=== PATIENT | female | born 1965 | race African-American/Black ===

== ENCOUNTER 2025-03-02 09:46 | Day surgery (SDC) | payer OTHER ==
[2025-03-01 11:28] LABS: Hematocrit 38.5 % (36.0-46.0); Hemoglobin 12.9 g/dL (12.2-16.2); Mean Corpuscular Hemoglobin 27.5 pg (28.0-32.0); Mean Corpuscular Volume 82.2 fL (80.0-100.0); Nucleated Red Blood Cells % 0.0 %
[2025-03-01 11:30] LABS: Urine Protein, UAD Negative (Negative)
[2025-03-01 11:42] LABS: INR 1.01 (0.9-1.15); Partial Thromboplastin Time 30.5 SEC (24.5-34.5); Prothrombin Time 10.7 sec (9.3-11.8)
[2025-03-01 12:06] LABS: Alanine Aminotransferase 13 U/L (7-40); Albumin 4.6 g/dL (3.2-4.8); Alkaline Phosphatase 102 U/L (46-116); Anion Gap 9 (5-15); BUN/Creatinine Ratio 11.9 (10.0-20.0); Blood Urea Nitrogen 10 mg/dL (9-23); Calcium 9.3 mg/dL (8.7-10.4); Carbon Dioxide 29 mmol/L (20-31); Chloride 106 mmol/L (98-107); Glucose 91 mg/dL (74-106); Potassium 3.9 mmol/L (3.5-5.1); Sodium 144 mmol/L (136-145); Total Protein 7.5 g/dL (5.7-8.2)
[2025-03-01 12:07] LABS: Bilirubin, Total 0.4 mg/dL (0.2-1.0)
[~2025-03-02] VITALS: Ht 154.9 cm; Wt 70.3 kg
[~2025-03-02 09:46] MED LIST: ASCO500T11 PO; MENT1CRE EX; ZINC100T5 PO
[2025-03-02] MEDS ORDERED: ceFAZolin 2 GM/D5W50ml 50 ML IV ONE (09:54)
[2025-03-02] MEDS ORDERED: LIDOCAINE W/ EPINEPHRINE 1% 20ML VIAL ONE (10:29)
[2025-03-02] MEDS ORDERED: KETOROLAC TROMETH 30 MG/ML 1ML VIAL IV ONE (10:45)
[2025-03-02] MEDS ORDERED: HYDROmorphone HCL 2 MG/ML VL/or syr IV PRN ×2 (10:45)
[2025-03-02] MEDS ORDERED: MORPHINE SULFATE INJ 2 MG/ml SYRG IV PRN (10:45)
[2025-03-02] MEDS ORDERED: MORPHINE SULFATE 4 MG/ML SYR/VIAL IV PRN (10:45)
[2025-03-02] MEDS ORDERED: METOCLOPRAMIDE HCL 5MG/ml INJ 2ml VIAL IV PRN (10:45)
[2025-03-02] MEDS ORDERED: fentaNYL CITRATE 100 MCG/2 ML VL ONE (10:53)
[2025-03-02] MEDS ORDERED: MIDAZOLAM HCL 2MG/2ML 2ml VIAL (1mg/ml) ONE (10:53)
[2025-03-02] MEDS ORDERED: PROPOFOL 10 MG/ML 20 ML IV ONE (10:53)
[2025-03-02] MEDS ORDERED: ONDANSETRON HCL 4 MG/2 ML VIAL ONE (10:53)
[2025-03-02] MEDS ORDERED: KETAMINE 50mg/ML 1ml syringe ONE (10:53)
[2025-03-02] MEDS ORDERED: MEPERIDINE HCL (25 MG/ML) 1ML VIAL ONE (10:53)
[2025-03-02] MEDS: LIDOCAINE 1% INJ PF 5ML AMP ONE (11:39)
[2025-03-02] MEDS: BUPIVACAINE 0.5% P/F INJ 10 ML VIAL ONE (11:39)
[2025-03-02 11:48] VITALS: PULSE 95; RESP 16; TEMP 97.8; O2SAT 96
[2025-03-02] MEDS ORDERED: ACE3T PO (11:48)
--- NOTE | 2025-03-02 12:14 | DVHOP ---
DATE OF SURGERY: 03/02/2025 PREOPERATIVE DIAGNOSIS: Right axillary mass (history of right breast cancer). POSTOPERATIVE DIAGNOSIS: Right axillary mass (history of right breast cancer). SURGEON: Ivan Armstrong MD, SOCK LINING STITCHER: Jonny Zamora NP. ANESTHESIA: General endotracheal. ANESTHESIOLOGIST: Dr. Farooq. PROCEDURE: Right axilla mass excision. DESCRIPTION OF PROCEDURE: Under adequate anesthesia with the patient's skin prepped and draped, an incision was made over the palpable mass within the dome of the right axilla. Dissection carried through adipose tissue and scar tissue for previous mastectomy and reconstruction of the right breast. The mass measured approximately 3 x 2 cm in size and was grasped with an Allis clamp and excised. It disintegrated partially at the time of dissection; however, most of the mass, if not all of it, was removed and submitted for histopathologic examination. The wound was then irrigated with warm water, which was aspirated. Hemostasis was assured. Due to the depth of the dissection, a 7 mm [place] drain was inserted and exteriorized separately. The wound was then approximated using Monocryl sutures, Dermabond glue, and Steri-Strips. The drain was secured with a 2-0 nylon suture. The patient remained stable throughout the procedure, left the operating room following accurate needle and sponge counts. Her , Bubba, was thoroughly informed in the waiting room. MD AMADEO Ramirez/BEBO TID: [id number] RECEIPT: [id number]
[2025-03-02 12:33] VITALS: BP 140/86; PULSE 87; RESP 16; O2SAT 96
== END 2025-03-02 12:50 | disposition home or self-care (01) ==
LOC: SUR 09:46
PROVIDERS: ATTEND Surgery
DX: R22.9 Localized swelling, mass and lump, unspecified (principal); C76.1 Malignant neoplasm of thorax; N63.10 Unspecified lump in the right breast, unspecified quadrant; I10 Essential (primary) hypertension; E03.9 Hypothyroidism, unspecified; M19.90 Unspecified osteoarthritis, unspecified site; E66.9 Obesity, unspecified; Z17.1 Estrogen receptor negative status [ER-]; Z17.22 Progesterone receptor negative status; Z17.32 Human epidermal growth factor receptor 2 negative status; Z68.30 Body mass index [BMI] 30.0-30.9, adult; Z79.899 Other long term (current) drug therapy; Z86.2 Personal history of diseases of the blood and blood-forming organs and certain disorders involving the immune mechanism; Z98.82 Breast implant status; Z98.890 Other specified postprocedural states; Z88.0 Allergy status to penicillin; Z88.8 Allergy status to other drugs, medicaments and biological substances
CPT/HCPCS: 11603; 36415; 80053; 81001; 85025; 85610; 85730; 88305; 88342; J0690; J2175; J2250; J2405; J2704; J3010; J3490

== ENCOUNTER 2025-03-05 13:25 | Inpatient (IN) | payer OTHER ==
[~2025-03-05] VITALS: Ht 156.2 cm; Wt 76.8 kg
[~2025-03-05 13:25] MED LIST changes: +ACE3T PO
[2025-03-05 15:12] LABS: Hematocrit 38.1 % (36.0-46.0); Hemoglobin 12.4 g/dL (12.2-16.2); Mean Corpuscular Hemoglobin 27.0 pg (28.0-32.0); Mean Corpuscular Volume 83.0 fL (80.0-100.0); Nucleated Red Blood Cells % 0.1 %
[2025-03-05 15:16] LABS: Chloride 106 mmol/L (98-107); Potassium 3.7 mmol/L (3.5-5.1); Sodium 145 mmol/L (136-145)
[2025-03-05 15:17] LABS: Anion Gap 13 (5-15); Carbon Dioxide 26 mmol/L (20-31)
[2025-03-05 15:18] LABS: Calcium 9.2 mg/dL (8.7-10.4)
--- NOTE | 2025-03-05 15:19 | DVH ---
CHEST RADIOGRAPH INDICATION: sob TECHNIQUE: Single frontal view of the chest was obtained COMPARISON: None FINDINGS: Lines and Tubes: None Lungs: Opacification 3/4 of the left chest. Mildly prominent bronchovascular markings in the right chest Pleura: Possible large left pleural effusion No pneumothorax. Cardiomediastinal contours: Unremarkable Bones: No acute osseous abnormality. IMPRESSION: 1. Moderate large left pleural effusion and infiltrate 2. Mildly prominent bronchovascular markings right. 3. Tubing in the soft tissues of the right lateral chest etiology uncertain. Not appear to extend into the chest.
[2025-03-05 15:23] LABS: BUN/Creatinine Ratio 16.0 (10.0-20.0); Blood Urea Nitrogen 13 mg/dL (9-23); Glucose 87 mg/dL (74-106)
--- NOTE | 2025-03-05 15:40 | ED.PDOC ---
SOB-HPI HPI Comments This is a 59 year old female presenting to the ED with chief complaint of SOB. Patient reports that she has been experiencing SOB with associated fever and chills since after her right breast cyst removal surgery performed last Friday by Dr. Armstrong. Patient relays that her symptoms have worsened over time, prompting her to come to the ED for further evaluation. Patient denies any chest pain, dizziness, cough, congestion, or hemoptysis. Chief Complaint: Shortness of Breath Time Seen by MD: 15:39 Reviewed notes: Nurses Notes, Medications, Allergies Information Source: Patient Mode of Arrival: Ambulatory Severity: Moderate Timing: Days Duration: Since onset Context: At Rest PE Risk Factors: None History of: None Prehospital treatment: None Modifying Factors: Nothing Associated Signs and Symptoms: Fever Past Medical History PAST MEDICAL HISTORY: Denies Surgical History (Other): Right breast cyst removal PROCUREMENT REPRESENTATIVE History: No Pertinent PROCUREMENT REPRESENTATIVE History Family History Family History: Reviewed,noncontributory to illness Social History Smoker: Non-Smoker Alcohol: Denies ETOH Use Drugs: Denies Drug Use Lives In: Home Constitutional: reports: chills, fever; denies: diaphoresis, fatigue, malaise, sweats, weakness, others EENTM: denies: blurred vision, double vision, ear bleeding, ear discharge, ear drainage, ear pain, ear ringing, eye pain, eye redness, hearing loss, mouth pain, mouth swelling, nasal discharge, nose bleeding, nose congestion, nose pain, photophobia, tearing, throat pain, throat swelling, voice changes, others Respiratory: reports: shortness of breath; denies: cough, hemoptysis, orthopnea, SOB at rest, SOB with excertion, stridor, wheezing, others Cardiovascular: denies: chest pain, dizzy spells, diaphoresis, Dyspnea on exertion, edema, irregular heart beat, left arm pain, lightheadedness, palpitations, PND, syncope, others Gastrointestinal: denies: abdomen distended, abdominal pain, blood streaked bowels, constipated, diarrhea, dysphagia, difficulty swallowing, hematemesis, melena, nausea, poor appetite, poor fluid intake, rectal bleeding, rectal pain, vomiting, others Genitourinary: denies: abnormal vagina bleeding, burning, dyspareunia, dysuria, flank pain, frequency, hematuria, incontinence, pain, , vagina discharge, urgency, others Neurological: denies: dizziness, fainting, headache, left sided numbness, left sided weakness, numbness, paresthesia, pre-existing deficit, right sided numbness, right sided weakness, seizure, speech problems, tingling, tremors, weakness, others Musculoskeletal: denies: back pain, gout, joint pain, joint swelling, muscle pain, muscle stiffness, neck pain, others Integumetry: denies: bruises, change in color, change in hair/nails, dryness, laceration, lesions, lumps, rash, wounds, others Allergic/Immunocompromised: denies: Difficulty Healing, Frequent Infections, Hives, Itching, others Hematologic/Lymphatic: denies: anemia, blood clots, easy bleeding, easy bruising, swollen glands, others Endocrine: denies: excessive hunger, excessive sweating, excessive thirst, excessive urination, flushing, intolerance to cold, intolerance to heat, unexplained weight gain, unexplained weight loss, others Psychiatric: denies: anxiety, bipolar disorder, depression, hopeless, panic disorder, schizophrenia, sleepless, suicidal, others All Other Systems: Reviewed and Negative Physical Exam General Appearance: No Apparent Distress, Normal HEENT: Normal ENT Inspection, Pharynx Normal, TMs Normal Neck: Full Range of Motion, Non-Tender, Normal, Normal Inspection Respiratory: Chest Non-Tender, Lungs Clear, No Accessory Muscle Use, No Respiratory Distress, Other (Tachypneic) Cardiovascular: No Edema, No JVD, No Murmur, No Gallop, Normal Peripheral Pulses, Regular Rate/Rhythm Breast Exam: Deferred Gastrointestinal: No Organomegaly, Non Tender, No Pulsatile Mass, Normal Bowel Sounds, Soft Genitalia: Deferred Pelvic: Deferred Rectal: Deferred Extremities: No calf tenderness, Normal capillary refill, Normal inspection, Normal range of motion, Non-tender, No pedal edema Musculoskeletal : Apperance: Normal Neurologic: Alert, exhibitor sales II-XII nml as Tested, No Motor Deficits, Normal Affect, Normal Mood, No Sensory Deficits Cerebellar Function: Normal Reflexes: Normal Skin: Dry, Normal Color, Warm Lymphatic: No Adenopathy Was a procedure done? Was a procedure done?: No Differential Dx Differential Diagnosis: Panic Attack, Pneumonia, Pneumothorax, Pulmonary Embolism, Respiratory Distress X-Ray, Labs, Meds, VS Vital Signs Date Time Temp Pulse Resp B/P (MAP) Pulse Ox O2 Delivery O2 Flow Rate FiO2 03/05/25 15:35 98.6 108 20 145/86 (105) 95 98.6 03/05/25 13:35 113 03/05/25 13:27 98.3 75 16 148/88 95 98.3 Lab Test 03/05/25 15:00 Range/Units White Blood Count 6.5 # 4.4-10.8 10^3/uL Red Blood Count 4.59 4.0-5.20 10^6/uL Hemoglobin 12.4 12.2-16.2 g/dL Hematocrit 38.1 36.0-46.0 % Mean Corpuscular Volume 83.0 80.0-100.0 fL Mean Corpuscular Hemoglobin 27.0 L 28.0-32.0 pg Mean Corpuscular Hemoglobin Concent 32.5 32.0-36.0 g/dL Red Cell Distribution Width 14.5 H 11.8-14.3 % Platelet Count 285 140-450 10^3/uL Mean Platelet Volume 7.1 6.9-10.8 fL Neutrophils (%) (Auto) 54.3 37.0-80.0 % Lymphocytes (%) (Auto) 34.7 10.0-50.0 % Monocytes (%) (Auto) 8.5 0.0-12.0 % Eosinophils (%) (Auto) 1.5 0.0-7.0 % Basophils (%) (Auto) 1.0 0.0-2.0 % Neutrophils # (Auto) 3.5 1.6-8.6 10 ^3/uL Lymphocytes # (Auto) 2.2 0.4-5.4 10 ^3/uL Monocytes # (Auto) 0.5 0-1.3 10 ^3/uL Eosinophils # (Auto) 0.1 0-0.8 10 ^3/uL Basophils # (Auto) 0.1 0-0.2 10 ^3/uL Nucleated Red Blood Cells 0.1 % Sodium Level 145 136-145 mmol/L Potassium Level 3.7 3.5-5.1 mmol/L Chloride Level 106 98-107 mmol/L Carbon Dioxide Level 26 20-31 mmol/L Anion Gap 13 5-15 Blood Urea Nitrogen 13 9-23 mg/dL Creatinine 0.81 0.550-1.02 mg/dL Glomerular Filtration Rate Calc 83 >90 mL/min BUN/Creatinine Ratio 16.0 10.0-20.0 Serum Glucose 87 74-106 mg/dL Calcium Level 9.2 8.7-10.4 mg/dL Troponin I High Sensitivity 4 </=34 ng/L Time of 1ST Reevaluation: 16:38 Reevaluation 1ST: Unchanged Patient Education/Counseling: Diagnosis, Treatment Family Education/Counseling: No Family Present SEPSIS Sepsis Screen Date sepsis recognized/suspect: Mar 05, 2025 Time Sepsis recognized/suspect: 1326 Recent Procedure: No On Antibiotic Therapy: No Respiratory Rate >20: No Heart Rate >90: No Temp<36 C (96.8 F) or >38.3 C: No SBP <90 or MAP <65 mmHG: No New Acute Mental Status Change: No Is the patient on CPAP, BIPAP,: No Physician Orders Electrocardigram (03/05/25 13:32) Chest Portable (03/05/25 14:42) PTPTT (03/05/25 16:40) Urinalysis (03/05/25 16:40) Chest Portable (03/05/25 16:40) Accucheck (03/05/25 16:40) Lactated Ringer's (03/05/25 16:45) Blood Culture (03/05/25 16:40) Vancomycin Once Stat (03/05/25 16:45) Lactic Acid W/ Reflex Order (03/05/25 18:00) Lactic Acid W/ Reflex Order (03/05/25 20:00) Cefepime 2 Gm Once Stat (03/05/25 16:45) Notify Md If Map <65 Or Bp<90 (03/05/25 16:40) If Map<65 Start Vasopressor (03/05/25 16:40) Sepsis Reassesment After Fluid (03/05/25 17:40) Vital Signs Date Time Temp Pulse Resp B/P (MAP) Pulse Ox O2 Delivery O2 Flow Rate FiO2 03/05/25 15:35 98.6 108 20 145/86 (105) 95 98.6 03/05/25 13:35 113 03/05/25 13:27 98.3 75 16 148/88 95 98.3 Laboratory Tests Test 03/05/25 15:00 White Blood Count 6.5 10^3/uL (4.4-10.8) # Departure 1 Departure Time of Disposition: 16:41 (Patient likely with pneumonia large pleural effusion. We will empirically cover patient with antibiotics and fluids. We w ill admit patient for further workup and expert consultation) Impression: Primary Impression: Acute respiratory failure Additional Impressions: Pneumonia Shortness of breath Suspected sepsis Disposition: ADMITTED INPATIENT Admit to: Tele Condition: Guarded Critical Care Note Critical Care Time?: Yes Critical care comment: Acute shortness of breath Authorized and Performed by: Lucila Ellis MD Total critical care time: Approximately 41 minutes Due to a high probability of clinically significant, life threatening deterioration, the patient required my highest level of preparedness to intervene emergently and I personally spent this critical care time directly and personally managing the patient. This critical care time included obtaining a history; examining the patient; pulse oximetry; ordering and review of studies; arranging urgent treatment with development of a management plan; evaluation of patient's response to treatment; frequent reassessment; and, discussions with other providers. This critical care time was performed to assess and manage the high probability of imminent, life-threatening deterioration that could result in multi-organ failure. It was exclusive of separately billable procedures and treating other patients and teaching time. Please see my other sections and the rest of the note for further information on patient assessment and treatment. Stability Stability form required: No Heart Score Heart Score: Heart Score Response (Comments) Value History N/A 0 EKG N/A 0 Age N/A 0 Risk Factors N/A 0 Troponin N/A 0 Total 0 I personally scribed for LUCILA ELLIS MD ([email or web address]) on 03/05/25 at 15:40. Electronically submitted by Gilbert Coker ([email or web address]). I personally scribed for LUCILA ELLIS MD ([email or web address]) on 03/05/25 at 15:51. Electronically submitted by Gilbert Coker ([email or web address]). LUCILA ELLIS MD Mar 05, 2025 15:40
[2025-03-05] MEDS ORDERED: CEFEPIME 1GM/50ML 50 ML IV ONE (16:45)
[2025-03-05 17:41] LABS: INR 0.99 (0.9-1.15); Partial Thromboplastin Time 29.4 SEC (24.5-34.5); Prothrombin Time 10.5 sec (9.3-11.8)
[2025-03-05] MEDS: VANCOMYCIN 1GM/250ML KIT 250 ML IV ONE (18:02)
[2025-03-05] MEDS: levoFLOXacin 250 MG TAB PO ONE (18:57)
[2025-03-05] MEDS: LACTATED RINGER'S 1,450 ML IV ONE (20:47)
[2025-03-05 20:52] LABS: Urine Protein, UAD Negative (Negative)
[2025-03-05] MEDS ORDERED: ACETAMINOPHEN 500 MG TAB or CAP PO PRN (21:45)
[2025-03-05] MEDS ORDERED: KETOROLAC TROMETH 30 MG/ML 1ML VIAL IV PRN (21:45)
[2025-03-05] MEDS: DOXYCYCLINE 100MG/100ML 100 ML IV SCH (22:27)
[2025-03-05] MEDS: FUROSEMIDE 40 MG/4 ML VIAL IV SCH (22:29)
[2025-03-05 23:09] VITALS: BP 119/75; PULSE 92; RESP 18; O2SAT 100
[2025-03-06] VITALS (8 sets, daily range): BP systolic 119–133; BP diastolic 75–82; PULSE 74–115; RESP 16–18; TEMP 98.3–98.9; O2SAT 97–100
--- NOTE | 2025-03-06 00:25 | DVHHP2 ---
History of Present Illness History of Present Illness 59-year-old female with past medical history significant for breast cancer status post bilateral mastectomy and chemotherapy three years ago, who presented with acute shortness of breath. Patient recently underwent excision/biopsy of a right axillary mass (likely lymph node) on Friday by Dr. Marsh. Since the procedure, she developed progressive dyspnea, prompting presentation to the hospital. On arrival, she was noted to be tachycardic and hypertensive, though she has no known history of chronic hypertension. Initial laboratory workup including CBC and BMP was largely unremarkable. Chest X-ray demonstrated a large left-sided pleural effusion occupying approximately 80% of the hemithorax. Given symptomatic large effusion, patient was admitted for further management. PMHx: Breast cancer status post bilateral mastectomy and chemotherapy PSHx: Bilateral mastectomy, recent right axillary mass excision/biopsy Medications: Not provided Allergies: Not provided Social History: Not provided ROS: Positive for shortness of breath. Otherwise negative as per HPI. Review of Systems Allergies: Coded Allergies: Penicillins (Unverified Allergy, Mild, rash, 03/01/25) Medications Current Medications Medications Dose Ordered Sig/Lena Route Start Time Stop Time Status Last Admin Dose Admin Doxycycline Hyclate 100 ml @ 50 mls/hr Q12H IV 03/05/25 22:00 03/05/25 22:27 50 MLS/HR Ceftriaxone Sodium 50 ml @ 100 mls/hr DAILY@09 IV 03/06/25 09:00 Furosemide 40 mg DAILY IV 03/05/25 21:45 03/05/25 22:29 40 MG Acetaminophen 1,000 mg Q8HP PRN PO 03/05/25 21:45 Ketorolac Tromethamine 30 mg Q6HPRN PRN IV 03/05/25 21:45 03/10/25 21:44 Exam Vital Signs Vital Signs Date Time Temp Pulse Resp B/P (MAP) Pulse Ox O2 Delivery O2 Flow Rate FiO2 03/05/25 22:29 142/66 03/05/25 16:50 99.1 107 22 92 99.1 03/05/25 16:50 Room Air Exam General: Appears uncomfortable with mild respiratory distress Cardiovascular: Tachycardic, regular rhythm Respiratory: Decreased breath sounds over the left lung field Abdomen: Soft, non-tender, non-distended Extremities: No peripheral edema Neuro: Alert and oriented Labs/Xrays Labs Test 03/05/25 20:30 03/05/25 18:11 03/05/25 15:00 Range/Units Urine Color Colorless Yellow Urine Clarity Turbid H Clear Urine pH 7.0 5.0-9.0 Urine Specific [place] 1.005 1.001-1.035 Urine Protein Negative Negative Urine Ketones Negative Negative Urine Blood Negative Negative /uL Urine Nitrite Negative Negative Urine Bilirubin Negative Negative Urine Urobilinogen Normal Negative mg/dL Urine Leukocyte Esterase Trace Negative /uL Urine RBC 2 0 - 4 /hpf Urine Microscopic WBC 2 0-5 /HPF Urine Squamous Epithelial Cells Few <5 /hpf Urine Bacteria None seen None Seen /hpf Urine Glucose Normal Normal mg/dL Lactic Acid Level 1.2 0.4-2.0 mmol/L White Blood Count 6.5 # 4.4-10.8 10^3/uL Red Blood Count 4.59 4.0-5.20 10^6/uL Hemoglobin 12.4 12.2-16.2 g/dL Hematocrit 38.1 36.0-46.0 % Mean Corpuscular Volume 83.0 80.0-100.0 fL Mean Corpuscular Hemoglobin 27.0 L 28.0-32.0 pg Mean Corpuscular Hemoglobin Concent 32.5 32.0-36.0 g/dL Red Cell Distribution Width 14.5 H 11.8-14.3 % Platelet Count 285 140-450 10^3/uL Mean Platelet Volume 7.1 6.9-10.8 fL Neutrophils (%) (Auto) 54.3 37.0-80.0 % Lymphocytes (%) (Auto) 34.7 10.0-50.0 % Monocytes (%) (Auto) 8.5 0.0-12.0 % Eosinophils (%) (Auto) 1.5 0.0-7.0 % Basophils (%) (Auto) 1.0 0.0-2.0 % Neutrophils # (Auto) 3.5 1.6-8.6 10 ^3/uL Lymphocytes # (Auto) 2.2 0.4-5.4 10 ^3/uL Monocytes # (Auto) 0.5 0-1.3 10 ^3/uL Eosinophils # (Auto) 0.1 0-0.8 10 ^3/uL Basophils # (Auto) 0.1 0-0.2 10 ^3/uL Nucleated Red Blood Cells 0.1 % Prothrombin Time 10.5 9.3-11.8 sec Prothrombin Time INR 0.99 0.9-1.15 Activated Partial Thromboplast Time 29.4 24.5-34.5 SEC Sodium Level 145 136-145 mmol/L Potassium Level 3.7 3.5-5.1 mmol/L Chloride Level 106 98-107 mmol/L Carbon Dioxide Level 26 20-31 mmol/L Anion Gap 13 5-15 Blood Urea Nitrogen 13 9-23 mg/dL Creatinine 0.81 0.550-1.02 mg/dL Glomerular Filtration Rate Calc 83 >90 mL/min BUN/Creatinine Ratio 16.0 10.0-20.0 Serum Glucose 87 74-106 mg/dL Calcium Level 9.2 8.7-10.4 mg/dL Troponin I High Sensitivity 4 </=34 ng/L SEPSIS Sepsis Screen Date sepsis recognized/suspect: Mar 05, 2025 Time Sepsis recognized/suspect: 1326 Recent Procedure: No On Antibiotic Therapy: No Respiratory Rate >20: No Heart Rate >90: No Temp<36 C (96.8 F) or >38.3 C: No SBP <90 or MAP <65 mmHG: No New Acute Mental Status Change: No Is the patient on CPAP, BIPAP,: No Physician Orders Accucheck (03/05/25 16:40) Blood Culture (03/05/25 16:40) Notify Md If Map <65 Or Bp<90 (03/05/25 16:40) If Map<65 Start Vasopressor (03/05/25 16:40) Sepsis Reassesment After Fluid (03/05/25 17:40) Admit (03/05/25 21:21) Oxygen By Nasal Cannula (03/05/25 21:21) Stat Ekg For Chest Pain (03/05/25 21:21) Notify Md Of Changes From Base (03/05/25 21:21) Pharmacy Clinical Specialist For 24 Hours (03/05/25 21:21) Emergency Dysrhythmia Protocol (03/05/25 21:21) Rhythm Strips Once Every Shift (03/05/25 21:21) Cardiac Diet-2gna,Lofat,Lochol (03/06/25 Breakfast) Mrsa Screen (03/05/25 21:40) Doxycycline 100mg/100ml (Vibramycin) (03/05/25 22:00) Ceftriaxone 1gm/50ml (Rocephin) (03/06/25 09:00) Furosemide Injection (Lasix Injection) (03/05/25 21:45) Acetaminophen Tab Or Cap (Tylenol Tablet (03/05/25 21:45) Ketorolac Injection (Toradol Injection) (03/05/25 21:45) *Consult (03/06/25 00:20) Chest Xray 1 View (03/06/25 00:20) Cytology (03/06/25 00:21) Lactate Dehydrogenase (03/06/25 00:21) Lactate Dehydrogenase, Fluid (03/06/25:21) Protein, Body Fluid (03/06/25 00:21) Gram Stain (03/06/25 00:21) Routine Bacterial Culture (03/06/25 00:21) Body Fluids, Diff. Cell Count (03/06/25 00:21) Body Fluid Ph (03/06/25 00:21) Glucose Body Fluid (03/06/25 00:21) Vital Signs Date Time Temp Pulse Resp B/P (MAP) Pulse Ox O2 Delivery O2 Flow Rate FiO2 03/05/25 22:29 142/66 03/05/25 16:50 99.1 107 22 161/98 (119) 92 99.1 03/05/25 16:50 22 92 Room Air Laboratory Tests Test 03/05/25 15:00 03/05/25 18:11 White Blood Count 6.5 10^3/uL (4.4-10.8) # Lactic Acid Level 1.2 mmol/L (0.4-2.0) Medications Medications Dose Ordered Sig/Lena Route Start Time Stop Time Status Last Admin Dose Admin Doxycycline Hyclate 100 ml @ 50 mls/hr Q12H IV 03/05/25 22:00 03/05/25 22:27 50 MLS/HR Furosemide 40 mg DAILY IV 03/05/25 21:45 03/05/25 22:29 40 MG Lactated Ringer's 1,450 ml @ 1,450 mls/hr ONCE ONCE IV 03/05/25 16:45 03/05/25 17:44 DC 03/05/25 20:47 1,450 MLS/HR Levofloxacin 750 mg ONCE ONCE PO 03/05/25 17:15 03/05/25 17:16 DC 03/05/25 18:57 750 MG Vancomycin HCl 250 ml @ 250 mls/hr ONCE ONCE IV 03/05/25 16:45 03/05/25 17:44 DC 03/05/25 18:02 250 MLS/HR Assessment/Plan Assessment/Plan #Large left pleural effusion #S/P breast mass #Possible pneumonia gram+/gram- #breast cancer Admitted due to symptomatic large left pleural effusion with concern for malignant etiology given history of breast cancer. Pulmonology consulted. Thoracentesis performed by Dr. Ramsey with removal of 1.2 L serosanguinous fluid; procedure stopped early due to chest discomfort. Post-procedure chest X-ray without pneumothorax but with residual effusion. Pleural fluid studies pending including cytology. Continue ceftriaxone and doxycycline while infectious component is being ruled out. Monitor respiratory status closely. Pulmonology to follow for consideration of repeat drainage or further intervention depending on clinical course and fluid results. Case discussed with Dr Parada Full code Plan discussed with: Patient, Other (rn) My Orders Orders - MYNOR NAVA RESIDENT Procedure Category Date Status Time Admit ADMIT 03/05/25 Transmitted 21:21 Oxygen By Nasal RT 03/05/25 Transmitted Cannula 21:21 Stat Ekg For Chest [facility] 03/05/25 In Process Pain 21:21 Notify Of Changes [facility] 03/05/25 In Process From Base 21:21 Pharmacy Clinical Specialist For [facility] 03/05/25 In Process 24 Hours 21:21 Emergency Dysrhythmia [facility] 03/05/25 In Process Protocol 21:21 Rhythm Strips Once [facility] 03/05/25 In Process Every Shift 21:21 Cardiac DIET 03/06/25 Transmitted Diet-2gna,Lofat,Lochol Breakfast Mrsa Screen ORACIO 03/05/25 Logged 21:40 Doxycycline PHA 03/05/25 In Process 100mg/100ml 22:00 Ceftriaxone 1gm/50ml PHA 03/06/25 In Process (Rocephin) 09:00 Furosemide Injection PHA 03/05/25 In Process (Lasix Injection) 21:45 Acetaminophen Tab Or PHA 03/05/25 In Process Cap (Tylenol Tablet 21:45 Ketorolac Injection PHA 03/05/25 In Process (Toradol Injection) 21:45 *Consult CONS 03/06/25 Transmitted 00:20 Chest Xray 1 View XY 03/06/25 Logged 00:20 Cytology ORACIO 03/06/25 Transmitted 00:21 Lactate Dehydrogenase LAB 03/06/25 Transmitted 00:21 Lactate LAB 03/06/25 Transmitted Dehydrogenase, Fluid 00:21 Protein, Body Fluid LAB 03/06/25 Transmitted 00:21 Gram Stain ORACIO 03/06/25 Transmitted 00:21 Routine Bacterial ORACIO 03/06/25 Transmitted Culture 00:21 Body Fluids, Diff. LAB 03/06/25 Transmitted Cell Count 00:21 Body Fluid Ph LAB 03/06/25 Transmitted 00:21 Glucose Body Fluid LAB 03/06/25 Transmitted 00:21 Date of Service: Mar 05, 2025 Billing Provider: JOSE PARADA MD Common Visit Codes: [id number] INP/OBS CARE (HIGH) Secondary Visit Codes: [id number] CARE PLAN 30 MINUTES MYNOR NAVA RESIDENT Mar 06, 2025 00:25
--- NOTE | 2025-03-06 00:31 | DVHNC2 ---
Other Procedure Informed consent obtained: Yes Risks, benefits, and alternati: Yes Notes A time out was performed and the chest x-ray was reviewed, the appropriate side (left) was confirmed and marked. My hands were washed immediately prior to the procedure. I wore a surgical cap, mask with protective eyewear, sterile gown and sterile gloves throughout the procedure. The patient was prepped and draped in a sterile manner using chlorhexidine scrub after the appropriate level was percussed and confirmed by ultrasound. 1% lidocaine was used to anesthesize the skin, subcutaneous tissue, superior aspect of the rib periosteum and parietal pleura. A finder needle was then introduced over the superior aspect of the rib to locate the pleural fluid; serosanguineous colored fluid was aspirated The [id number] needle was then introduced through the skin incision into the pleural space using negative aspiration pressure and the red colormetric indicator to confirm appropriate positioning of the needle. The thoracentesis catheter was then threaded without difficulty. 1200 ml of serosanguineous colored fluid was removed without difficulty. The catheter was then removed. No immediate complications were noted during the procedure. A post-procedure chest x-ray is pending at the time of this note. The fluid will be sent for studies. Date of Service: Mar 06, 2025 Billing Provider: GILES STEPHENS MD Common Visit Codes: PROCEDURE ONLY Procedure Codes: [id number] W/INSERT TUBE MYNOR NAVA Mar 06, 2025 00:31
--- NOTE | 2025-03-06 00:59 | DVHINCON2 ---
Date of service: Mar 05, [address] Hyman Reason for Consultation Acute hypoxic respiratory failure and pleural effusion History of Present Illness This is a 59-year-old woman with past medical history of lung cancer who presents to the ED today with chief complaint of shortness of breath. Patient reports that she has been experiencing SOB with associated fever and chills since after her right breast cyst removal surgery performed last Friday by Dr. Armstrong. Patient relates her symptoms have worsened over time, prompting her to come to the ED for further evaluation. Patient denies any chest pain, dizziness, cough, congestion, or hemoptysis. Patient was admitted for further care. Pulmonary consultation is requested for evaluation and management of acute hypoxic respiratory failure and pleural effusion in patient with lung cancer. Review of Systems: 14-point review of systems negative unless otherwise noted above. Past Medical/Surgical History: Lung cancer, recent lung biopsy. Right breast cyst removal Medications: Reviewed. Allergies: No known drug allergies. Family History: No family history of premature CAD. No family history of lung disorders. Social History: Nonsmoker. No alcohol or illicit drug use. Allergies: Coded Allergies: Penicillins (Unverified Allergy, Mild, rash, 03/01/25) Home Meds Active Scripts Acetaminophen W/ Codeine (Tylenol W/Cod #3) 1 Tab Tb, 1 TAB PO Q4HP PRN for 10 Days, #50 TAB Prov:FABIOLA RIVERA [employer]ER 03/02/25 Reported Medications Menthol-Camphor (Liniments) (Menthol 10% + Camphor 4% 10-4 %) 1 Cre Cre, EX, CRE 03/01/25 Zinc Gluconate (ZINC) 100 Mg Tab, PO, TAB 03/01/25 Ascorbic Acid (VITAMIN C TABLET) 500 Mg Tb, PO DAILY, #30 TAB 3 Refills 03/01/25 Current Medications Current Medications Medications (Trade) Dose Ordered Sig/Lena Route PRN Reason Start Time Stop Time Status Last Admin Doxycycline Hyclate 100 ml @ 50 mls/hr Q12H IV 03/05/25 22:00 03/05/25 22:27 Ceftriaxone Sodium 50 ml @ 100 mls/hr DAILY@09 IV 03/06/25 09:00 Furosemide (Lasix Injection) 40 mg DAILY IV 03/05/25 21:45 03/05/25 22:29 Acetaminophen (Tylenol Tablet Or Capsule) 1,000 mg Q8HP PRN PO MILD PAIN (1-3 PAIN SCALE) 03/05/25 21:45 Ketorolac Tromethamine (Toradol Injection) 30 mg Q6HPRN PRN IV MODERATE PAIN (4-6 PAIN SCALE) 03/05/25 21:45 03/10/25 21:44 Vital Signs Vital Signs Date Time Temp Pulse Resp B/P (MAP) Pulse Ox O2 Delivery O2 Flow Rate FiO2 03/05/25 22:29 142/66 03/05/25 16:50 99.1 107 22 92 99.1 03/05/25 16:50 Room Air Physical Exam Gen.: Patient lying in bed in no apparent distress. On supplemental oxygen. Head: Normocephalic, atraumatic. Eyes: EOMI/PERRLA. Ears: Normal hearing. Normal anatomy. Neck/trachea: Trachea midline, supple. Nose: Normal external anatomy. Mouth: Moist mucous membranes. Chest: Decreased air entry bilaterally. No wheezing or rhonchi. Cardiovascular: Positive S1, positive S2. Regular rate and rhythm. Abdomen: Positive bowel sounds in all 4 quadrants. Soft, non-tender, non- distended. : Deferred. Rectal: Deferred. Skin: Warm, dry. Intact. Extremities: 2+ radial pulses bilaterally. No lower extremity edema. Neuro: Awake, alert, oriented x3. No gross motor or sensory deficits. Cranial nerves II through XII intact. Gait not assessed. Labs/Diagnostic Data Labs Test 03/05/25 20:30 03/05/25 18:11 03/05/25 15:00 Range/Units Urine Color Colorless Yellow Urine Clarity Turbid H Clear Urine pH 7.0 5.0-9.0 Urine Specific [place] 1.005 1.001-1.035 Urine Protein Negative Negative Urine Ketones Negative Negative Urine Blood Negative Negative /uL Urine Nitrite Negative Negative Urine Bilirubin Negative Negative Urine Urobilinogen Normal Negative mg/dL Urine Leukocyte Esterase Trace Negative /uL Urine RBC 2 0 - 4 /hpf Urine Microscopic WBC 2 0-5 /HPF Urine Squamous Epithelial Cells Few <5 /hpf Urine Bacteria None seen None Seen /hpf Urine Glucose Normal Normal mg/dL Lactic Acid Level 1.2 0.4-2.0 mmol/L White Blood Count 6.5 # 4.4-10.8 10^3/uL Red Blood Count 4.59 4.0-5.20 10^6/uL Hemoglobin 12.4 12.2-16.2 g/dL Hematocrit 38.1 36.0-46.0 % Mean Corpuscular Volume 83.0 80.0-100.0 fL Mean Corpuscular Hemoglobin 27.0 L 28.0-32.0 pg Mean Corpuscular Hemoglobin Concent 32.5 32.0-36.0 g/dL Red Cell Distribution Width 14.5 H 11.8-14.3 % Platelet Count 285 140-450 10^3/uL Mean Platelet Volume 7.1 6.9-10.8 fL Neutrophils (%) (Auto) 54.3 37.0-80.0 % Lymphocytes (%) (Auto) 34.7 10.0-50.0 % Monocytes (%) (Auto) 8.5 0.0-12.0 % Eosinophils (%) (Auto) 1.5 0.0-7.0 % Basophils (%) (Auto) 1.0 0.0-2.0 % Neutrophils # (Auto) 3.5 1.6-8.6 10 ^3/uL Lymphocytes # (Auto) 2.2 0.4-5.4 10 ^3/uL Monocytes # (Auto) 0.5 0-1.3 10 ^3/uL Eosinophils # (Auto) 0.1 0-0.8 10 ^3/uL Basophils # (Auto) 0.1 0-0.2 10 ^3/uL Nucleated Red Blood Cells 0.1 % Prothrombin Time 10.5 9.3-11.8 sec Prothrombin Time INR 0.99 0.9-1.15 Activated Partial Thromboplast Time 29.4 24.5-34.5 SEC Sodium Level 145 136-145 mmol/L Potassium Level 3.7 3.5-5.1 mmol/L Chloride Level 106 98-107 mmol/L Carbon Dioxide Level 26 20-31 mmol/L Anion Gap 13 5-15 Blood Urea Nitrogen 13 9-23 mg/dL Creatinine 0.81 0.550-1.02 mg/dL Glomerular Filtration Rate Calc 83 >90 mL/min BUN/Creatinine Ratio 16.0 10.0-20.0 Serum Glucose 87 74-106 mg/dL Calcium Level 9.2 8.7-10.4 mg/dL Troponin I High Sensitivity 4 </=34 ng/L Assessment Impression: Acute hypoxic respiratory failure Dependence on supplemental oxygen Lung cancer Pleural effusion, left Atelectasis Obesity Plan: Supplemental oxygen Titrate to keep O2 sats above 92%. S/p left thoracentesis, drained 1.5 liters of serosanguineous fluid Follow up fluid analysis, culture and cytology Patient had recent lung bx, diagnosed with lung cancer. Continue antibiotics Incentive spirometry Follow up Oncology recs Monitor renal function. Monitor electrolytes. Supplement as necessary. Monitor ins and outs. Recommend diet and lifestyle modifications for weight reduction Obesity complicates all care DVT prophylaxis. Prognosis: Poor given patient's multiple co-morbidities. Rest of plan per hospitalist and other consultants. Thank you, Dr. Hyman, for allowing me to participate in this patient's care. Further recommendations will depend on the patient's clinical course. Please do not hesitate to contact me if you have any questions or concerns. This medical document was created using an electronic medical record system with [employer] dictation system. Although these documentations are being carefully reviewed, there may still be some phonetic and typographical changes. The errors are purely typographical, due to imperfection on the software program, and do not reflect any compromise in the patient's medical care. Plan discussed with: Patient, Other (SHANTANU Romero) Visit Coding Pulmonary Billing Provider: GILES STEPHENS MD Date of Service if different f: Mar 05, 2025 Common Visit Codes: [id number] INP/OBS CARE (HIGH) GILES STEPHENS MD Mar 06, 2025 00:59
--- NOTE | 2025-03-06 01:00 | DVH ---
CHEST RADIOGRAPH INDICATION: sp thoracentesis TECHNIQUE: Single frontal view of the chest was obtained COMPARISON: XY CHEST PORTABLE on DOS: 03/05/25, XY CHEST TWO VIEWS ROUTINE on DOS: 03/01/25 FINDINGS: Moderate left-sided pleural effusion, improved from previous, with dense atelectasis/ consolidation throughout the left mid and lower lung. No significant right pleural fluid. Cardiac silhouette is enlarged. Diffuse prominence of the pulmonary vasculature and slight prominence of the interstitium. No pneumothorax. IMPRESSION: No pneumothorax post thoracentesis. Slight interval decrease in size in the left-sided pleural effusion with slightly improved aeration of the left upper and mid lung.
--- NOTE | 2025-03-06 06:23 | DVH ---
CHEST RADIOGRAPH Indication: sp thoracentesis Technique: Single frontal view of the chest was obtained COMPARISON: XY CHEST XRAY 1 VIEW on DOS: 03/06/25, XY CHEST PORTABLE on DOS: 03/05/25, XY CHEST TWO VIEWS ROUTINE on DOS: 03/01/25 FINDINGS: Lines and Tubes: None Lungs: Multifocal airspace disease. Pleura: Small left pleural effusion. No pneumothorax. Cardiomediastinal contours: Unremarkable Bones: Unremarkable IMPRESSION: No significant interval change.
[2025-03-06 07:17] LABS: Hematocrit 37.1 % (36.0-46.0); Hemoglobin 12.5 g/dL (12.2-16.2); Mean Corpuscular Hemoglobin 27.4 pg (28.0-32.0); Mean Corpuscular Volume 81.6 fL (80.0-100.0); Nucleated Red Blood Cells % 0.0 %
[2025-03-06 07:33] LABS: Alanine Aminotransferase 10 U/L (7-40); Alkaline Phosphatase 85 U/L (46-116); Anion Gap 11 (5-15); BUN/Creatinine Ratio 10.0 (10.0-20.0); Blood Urea Nitrogen 9 mg/dL (9-23); Calcium 9.5 mg/dL (8.7-10.4); Carbon Dioxide 28 mmol/L (20-31); Chloride 104 mmol/L (98-107); Glucose 90 mg/dL (74-106); Potassium 3.9 mmol/L (3.5-5.1); Sodium 143 mmol/L (136-145); Total Protein 7.3 g/dL (5.7-8.2)
[2025-03-06 07:35] LABS: Albumin 4.4 g/dL (3.2-4.8); Bilirubin, Total 0.7 mg/dL (0.2-1.0)
--- NOTE | 2025-03-06 17:28 | DVHPN2 ---
Subjective Patient is status post left thoracentesis in which 1200 mL was removed. Patient is currently on O2 supplementation. 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 Medications Current Medications Medications Dose Ordered Sig/Lena Route Start Time Stop Time Status Last Admin Dose Admin Doxycycline Hyclate 100 ml @ 50 mls/hr Q12H IV 03/05/25 22:00 03/06/25 10:33 50 MLS/HR Ceftriaxone Sodium 50 ml @ 100 mls/hr DAILY@09 IV 03/06/25 09:00 03/06/25 08:52 100 MLS/HR Furosemide 40 mg DAILY IV 03/05/25 21:45 03/06/25 08:50 40 MG Acetaminophen 1,000 mg Q8HP PRN PO 03/05/25 21:45 Ketorolac Tromethamine 30 mg Q6HPRN PRN IV 03/05/25 21:45 03/10/25 21:44 Laboratory Results Laboratory Tests 03/06/25 06:20 Chemistry Test 03/06/25 06:20 Albumin 4.4 g/dL (3.2-4.8) Calcium Level 9.5 mg/dL (8.7-10.4) Total Protein 7.3 g/dL (5.7-8.2) LFT Test 03/06/25 06:20 Alanine Aminotransferase (ALT) 10 U/L (7-40) Alkaline Phosphatase 85 U/L (46-116) Aspartate Amino Transferase (AST) 19 U/L (13-40) Total Bilirubin 0.7 mg/dL (0.2-1.0) Urinalysis Test 03/05/25 20:30 Urine Color Colorless (Yellow) Urine Clarity Turbid (Clear) H Urine pH 7.0 (5.0-9.0) Urine Specific [place] 1.005 (1.001-1.035) Urine Protein Negative (Negative) Urine Ketones Negative (Negative) Urine Blood Negative /uL (Negative) Urine Nitrite Negative (Negative) Urine Bilirubin Negative (Negative) Urine Urobilinogen Normal mg/dL (Negative) Urine Leukocyte Esterase Trace /uL (Negative) Urine RBC 2 /hpf (0 - 4) Urine Microscopic WBC 2 /HPF (0-5) Urine Squamous Epithelial Cells Few /hpf (<5) Urine Bacteria None seen /hpf (None Seen) Urine Glucose Normal mg/dL (Normal) Microbiology Microbiology Date/Time Source Procedure Growth Status 03/05/25 17:05 Blood Blood Culture - Preliminary NO GROWTH AFTER 24 HOURS OF INCUBATION. Resulted Assessment/Plan Assessment/Plan 59-year-old female with a known history of breast cancer status post bilateral mastectomy, status post chemotherapy three years ago, status post excision and axillary mass biopsy on the right side recently presented to the hospital with a worsening shortness of breaths and progressive dyspnea found to have 1. Acute hypoxic respiratory failure suspected secondary to large left-sided pleural effusion 2. Large left-sided pleural effusion status post thoracentesis 3. Suspected left lung pneumonia 4. Right axillary mass status post biopsy 5. Breast cancer status post bilateral mastectomy, chemotherapy three years ago -continue O2 supplementation, IV antibiotics follow up Pulmonary recommendations. Plan discussed with: Patient My Orders Orders - KEVIN VACA MD Procedure Category Date Status Time Cytology ORACIO 03/06/25 Transmitted 15:01 Date of Service: Mar 06, 2025 Billing Provider: KEVIN VACA MD Common Visit Codes: [id number] INP/OBS CARE(HIGH) KEVIN VACA MD Mar 06, 2025 17:28
[2025-03-06] MEDS: ENOXAPARIN SOD 40 MG/0.4 ML SYRINGE SC SCH (20:01)
--- NOTE | 2025-03-06 23:09 | DVHPN2 ---
Subjective DOS: 03/06/2025 Patient seen and examined at bedside. Remains on supplemental oxygen Overnight events reviewed. Changes from previous H/P or p: No Changes Objective Vitals Vital Signs Date Time Temp Pulse Resp B/P (MAP) Pulse Ox O2 Delivery O2 Flow Rate FiO2 03/06/25 21:00 98.4 100 18 132/82 (99) 97 98.4 03/06/25 20:00 Nasal Cannula* 3 32 Intake/Output Intake and Output 03/06/25 07:00 Intake Total 150 ml Balance 150 ml Intake Oral 50 ml IV Total 100 ml # Voids 5 Exam Gen.: Patient lying in bed in no apparent distress. On supplemental oxygen. Head: Normocephalic, atraumatic. Eyes: EOMI/PERRLA. Ears: Normal hearing. Normal anatomy. Neck/trachea: Trachea midline, supple. Nose: Normal external anatomy. Mouth: Moist mucous membranes. Chest: Decreased air entry bilaterally. No wheezing or rhonchi. Cardiovascular: Positive S1, positive S2. Regular rate and rhythm. Abdomen: Positive bowel sounds in all 4 quadrants. Soft, non-tender, non- distended. : Deferred. Rectal: Deferred. Skin: Warm, dry. Intact. Extremities: 2+ radial pulses bilaterally. No lower extremity edema. Neuro: Awake, alert, oriented x3. No gross motor or sensory deficits. Cranial nerves II through XII intact. Gait not assessed. Medications Current Medications Medications Dose Ordered Sig/Lena Route Start Time Stop Time Status Last Admin Dose Admin Doxycycline Hyclate 100 ml @ 50 mls/hr Q12H IV 03/05/25 22:00 03/06/25 21:41 50 MLS/HR Ceftriaxone Sodium 50 ml @ 100 mls/hr DAILY@09 IV 03/06/25 09:00 03/06/25 08:52 100 MLS/HR Furosemide 40 mg DAILY IV 03/05/25 21:45 03/06/25 08:50 40 MG Acetaminophen 1,000 mg Q8HP PRN PO 03/05/25 21:45 Ketorolac Tromethamine 30 mg Q6HPRN PRN IV 03/05/25 21:45 03/10/25 21:44 Enoxaparin Sodium 40 mg DAILY SC 03/06/25 17:30 03/06/25 20:01 40 MG Laboratory Results Laboratory Tests 03/06/25 06:20 Chemistry Test 03/06/25 06:20 Albumin 4.4 g/dL (3.2-4.8) Calcium Level 9.5 mg/dL (8.7-10.4) Total Protein 7.3 g/dL (5.7-8.2) LFT Test 03/06/25 06:20 Alanine Aminotransferase (ALT) 10 U/L (7-40) Alkaline Phosphatase 85 U/L (46-116) Aspartate Amino Transferase (AST) 19 U/L (13-40) Total Bilirubin 0.7 mg/dL (0.2-1.0) Urinalysis Test 03/05/25 20:30 Urine Color Colorless (Yellow) Urine Clarity Turbid (Clear) H Urine pH 7.0 (5.0-9.0) Urine Specific [place] 1.005 (1.001-1.035) Urine Protein Negative (Negative) Urine Ketones Negative (Negative) Urine Blood Negative /uL (Negative) Urine Nitrite Negative (Negative) Urine Bilirubin Negative (Negative) Urine Urobilinogen Normal mg/dL (Negative) Urine Leukocyte Esterase Trace /uL (Negative) Urine RBC 2 /hpf (0 - 4) Urine Microscopic WBC 2 /HPF (0-5) Urine Squamous Epithelial Cells Few /hpf (<5) Urine Bacteria None seen /hpf (None Seen) Urine Glucose Normal mg/dL (Normal) Microbiology Microbiology Date/Time Source Procedure Growth Status 03/05/25 18:11 Blood Blood Culture - Preliminary NO GROWTH AFTER 24 HOURS OF INCUBATION. Resulted Assessment/Plan Assessment/Plan Impression: Acute hypoxic respiratory failure Dependence on supplemental oxygen Lung cancer Pleural effusion, left Atelectasis Obesity Events: Remains on supplemental oxygen, 3 LPM NC Taper O2 as tolerated No acute overnight events. CXR demonstrates small left pleural effusion. Multifocal airspace disease. Continue antibiotics Incentive spirometry Diurese with Lasix as tolerated. Monitor renal function. Monitor electrolytes. Supplement as necessary. Labs and imaging reviewed. Rest of plan as noted below. Plan: Supplemental oxygen Titrate to keep O2 sats above 92%. S/p left thoracentesis, drained 1.5 liters of serosanguineous fluid Follow up fluid analysis, culture and cytology Patient had recent lung bx, diagnosed with lung cancer. Continue antibiotics Incentive spirometry Follow up Oncology recs Monitor renal function. Monitor electrolytes. Supplement as necessary. Monitor ins and outs. Recommend diet and lifestyle modifications for weight reduction Obesity complicates all care DVT prophylaxis. Prognosis: Poor given patient's multiple co-morbidities. Rest of plan per hospitalist and other consultants. Thank you, Dr. Hyman, for allowing me to participate in this patient's care. Further recommendations will depend on the patient's clinical course. Please do not hesitate to contact me if you have any questions or concerns. This medical document was created using an electronic medical record system with [employer] dictation system. Although these documentations are being carefully reviewed, there may still be some phonetic and typographical changes. The errors are purely typographical, due to imperfection on the software program, and do not reflect any compromise in the patient's medical care. Plan discussed with: Patient, Other (SHANTANU Munguia) Visit Coding Pulmonary Billing Provider: GILES STEPHENS MD Date of Service if different f: Mar 06, 2025 Common Visit Codes: [id number] INP/OBS CARE(HIGH) GILES STEPHENS MD Mar 06, 2025 23:09
[2025-03-07] VITALS (8 sets, daily range): BP systolic 120–130; BP diastolic 73–86; PULSE 77–111; RESP 18–19; TEMP 97.5–98.6; O2SAT 94–100
[2025-03-07] MEDS ORDERED: HYDROcodone-ACET 5/325MG TAB PO PRN (11:30)
[2025-03-07] MEDS ORDERED: MORPHINE SULFATE INJ 2 MG/ml SYRG IV PRN (11:30)
--- NOTE | 2025-03-07 11:33 | DVHPN2 ---
Progress Note Date Seen: Mar 07, 2025 Medical Necessity Reason Pt with a Central, PICC or Fol: No Subjective Patient reports: No new complaints Review of Systems: HEENT:Normal, CVS:Normal, RESPIRATORY:Normal, GI:Normal, :Normal, MSK:Normal, NEURO:Normal Objective vital signs Vital Sign Date Time Temp Pulse Resp B/P (MAP) Pulse Ox O2 Delivery O2 Flow Rate FiO2 03/07/25 10:17 126/75 03/07/25 08:58 98.1 100 18 100 98.1 03/06/25 20:00 Nasal Cannula* 3 32 Total Intake and Output 03/06/25 03/06/25 03/07/25 15:00 23:00 07:00 Intake Total 630 ml 700 ml 700 ml Balance 630 ml 700 ml 700 ml medications Current Medications Medications Dose Ordered Sig/Lena Route Start Time Stop Time Status Last Admin Dose Admin Doxycycline Hyclate 100 ml @ 50 mls/hr Q12H IV 03/05/25 22:00 03/07/25 10:18 50 MLS/HR Ceftriaxone Sodium 50 ml @ 100 mls/hr DAILY@09 IV 03/06/25 09:00 03/07/25 10:17 100 MLS/HR Furosemide 40 mg DAILY IV 03/05/25 21:45 03/07/25 10:17 40 MG Acetaminophen 1,000 mg Q8HP PRN PO 03/05/25 21:45 Ketorolac Tromethamine 30 mg Q6HPRN PRN IV 03/05/25 21:45 03/10/25 21:44 Enoxaparin Sodium 40 mg DAILY SC 03/06/25 17:30 03/07/25 10:19 40 MG Examination: GENERAL:Normal, HEENT:Normal, NECK:Normal, LUNGS:Normal, LUNGS:Abnormal (on oxygen, decreased left side), CVS:Normal, ABDOMEN:Normal, MSK:Normal, SKIN:Normal, NEURO:Normal, :Normal laboratory and microbiology Laboratory Tests 03/06/25 06:20 Test 03/06/25 06:20 Range/Units Serum Glucose 90 74-106 mg/dL Microbiology Date/Time Source Procedure Growth Status 03/05/25 18:11 Blood Blood Culture - Preliminary NO GROWTH AFTER 24 HOURS OF INCUBATION. Resulted Problem List/Assessment/Plan Problem List/Assessment/Plan #1 acute resp failure: cont oxygen #2 h/o breast cancer s/p surg/chemo #3 right axillary mass s/p surgery #4 left effusion s/p thoracentesis: ct chest #5 obesity #6 ?pneumonia-gram positive/neg advance care planning- full code- time spent 18 mins Plan discussed with: Patient, Spouse Date of Service: Mar 07, 2025 Billing Provider: MAAME VARGAS MD Common Visit Codes: [id number] INP/OBS CARE(HIGH) Secondary Visit Codes: [id number] CARE PLAN 30 MINUTES MAAME VARGAS MD Mar 07, 2025 11:33
[2025-03-07] MEDS ORDERED: MORPHINE SULFATE 4 MG/ML SYR/VIAL IV PRN (11:45)
--- NOTE | 2025-03-07 12:15 | ECG ---
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
--- NOTE | 2025-03-07 16:22 | DVH ---
COMPUTERIZED TOMOGRAPHY CHEST/ABDOMEN/PELVIS WITH INTRAVENOUS CONTRAST CLINICAL HISTORY: breast cancer COMPARISON: None TECHNIQUE: After the administration of intravenous contrast, axial CT images of the chest, abdomen and pelvis were obtained. 2-D coronal and sagittal reformatted images were provided. Radiation optimization: All CT scans at this facility use at least one of these dose optimization techniques: Automated exposure control mA and/or kV adjustment per patient size (includes targeted exams where dose is matched to clinical indication) or iterative reconstruction. CONTRAST ADMINISTERED: 100 mL omnipaque 300, intravenously. RADIATION DOSE: CTDI: 17.36 mGy DLP: 1088.91 mGy-cm FINDINGS: CHEST: There are numerous pulmonary nodules in all lobes of the lungs, most consistent with metastatic disease. The largest of the these measures approximately 15 mm at the anterior base of the right middle lobe. There is a moderate-sized, loculated left pleural effusion. There is enhancing nodularity of the left parietal pleura consistent with metastatic disease. There are bilateral breast prostheses. Heart is not enlarged. There is no pericardial effusion. There is no thoracic aortic aneurysm. There is no large central pulmonary embolism. There are surgical clips and a surgical drain in the right axilla. There is an enlarged lymph node high in the right axilla measuring approximately 1.3 cm in short axis. ABDOMEN/PELVIS: The spleen is not enlarged. The liver appears grossly unremarkable. The portal vein is patent. There is no intrahepatic biliary dilation. No calcified gallstone is identified. The pancreas is grossly unremarkable. The adrenal glands appear normal. The kidneys enhance symmetrically. There is no hydrone phrosis of either kidney. There is no abdominal aortic aneurysm. The urinary bladder is grossly unremarkable. The uterus and ovaries are within normal limits. No free fluid is identified in the abdomen or pelvis. The colonic stool burden is small to moderate. The appendix is not definitely seen. No acute osseous abnormality is identified. IMPRESSION: Findings consistent with metastatic disease throughout both lungs and also involving the left parietal pleura. Moderate-sized, loculated left pleural effusion. Right axillary lymphadenopathy. No definite metastatic disease identified in the abdomen or pelvis.
--- NOTE | 2025-03-07 23:16 | DVHPN2 ---
Subjective DOS: 03/07/2025 Patient seen and examined at bedside. Remains on supplemental oxygen Overnight events reviewed. Changes from previous H/P or p: No Changes Objective Vitals Vital Signs Date Time Temp Pulse Resp B/P (MAP) Pulse Ox O2 Delivery O2 Flow Rate FiO2 03/07/25 20:00 110 03/07/25 20:00 18 98 Nasal Cannula* 4 36 03/07/25 16:54 97.5 128/74 (92) 97.5 Intake/Output Intake and Output 03/07/25 06:59 Intake Total 2030 ml Balance 2030 ml Intake Oral 1880 ml IV Total 150 ml # Voids 13 Exam Gen.: Patient lying in bed in no apparent distress. On supplemental oxygen. Head: Normocephalic, atraumatic. Eyes: EOMI/PERRLA. Ears: Normal hearing. Normal anatomy. Neck/trachea: Trachea midline, supple. Nose: Normal external anatomy. Mouth: Moist mucous membranes. Chest: Decreased air entry bilaterally. No wheezing or rhonchi. Cardiovascular: Positive S1, positive S2. Regular rate and rhythm. Abdomen: Positive bowel sounds in all 4 quadrants. Soft, non-tender, non- distended. : Deferred. Rectal: Deferred. Skin: Warm, dry. Intact. Extremities: 2+ radial pulses bilaterally. No lower extremity edema. Neuro: Awake, alert, oriented x3. No gross motor or sensory deficits. Cranial nerves II through XII intact. Gait not assessed. Medications Current Medications Medications Dose Ordered Sig/Lena Route Start Time Stop Time Status Last Admin Dose Admin Doxycycline Hyclate 100 ml @ 50 mls/hr Q12H IV 03/05/25 22:00 03/07/25 21:48 50 MLS/HR Enoxaparin Sodium 40 mg DAILY SC 03/06/25 17:30 03/07/25 10:19 40 MG Acetaminophen 650 mg Q6HP PRN PO 03/07/25 11:30 Acetaminophen/ Hydrocodone Bitart 1 tab Q6HPRN PRN PO 03/07/25 11:30 Morphine Sulfate 2 mg Q6HPRN PRN IV 03/07/25 11:45 Laboratory Results Laboratory Tests 03/06/25 06:20 Urinalysis Test 03/05/25 20:30 Urine Color Colorless (Yellow) Urine Clarity Turbid (Clear) H Urine pH 7.0 (5.0-9.0) Urine Specific [place] 1.005 (1.001-1.035) Urine Protein Negative (Negative) Urine Ketones Negative (Negative) Urine Blood Negative /uL (Negative) Urine Nitrite Negative (Negative) Urine Bilirubin Negative (Negative) Urine Urobilinogen Normal mg/dL (Negative) Urine Leukocyte Esterase Trace /uL (Negative) Urine RBC 2 /hpf (0 - 4) Urine Microscopic WBC 2 /HPF (0-5) Urine Squamous Epithelial Cells Few /hpf (<5) Urine Bacteria None seen /hpf (None Seen) Urine Glucose Normal mg/dL (Normal) Microbiology Microbiology Date/Time Source Procedure Growth Status 03/06/25 00:50 Thoracic Fluid Gram Stain - Final Resulted 03/06/25 00:50 Thoracic Fluid Aerobic Culture - Preliminary No growth Resulted 03/05/25 18:11 Blood Blood Culture - Preliminary NO GROWTH AFTER 48 HOURS OF INCUBATION. Resulted Assessment/Plan Assessment/Plan Impression: Acute hypoxic respiratory failure Dependence on supplemental oxygen Lung cancer Pleural effusion, left Atelectasis Obesity Events: Remains on supplemental oxygen, 3 LPM NC Taper O2 as tolerated No acute overnight events. CXR demonstrates small left pleural effusion. Multifocal airspace disease. Continue antibiotics Incentive spirometry Diurese with Lasix as tolerated. Monitor renal function. Monitor electrolytes. Supplement as necessary. Follow up as outpatient for left thoracentesis - recurrent left pleural effusions due to lung cancer. Labs and imaging reviewed. Rest of plan as noted below. Plan: Supplemental oxygen Titrate to keep O2 sats above 92%. S/p left thoracentesis on 03/06, drained 1.5 liters of serosanguineous fluid Follow up fluid analysis, culture and cytology Patient had recent lung bx, diagnosed with lung cancer. Continue antibiotics Incentive spirometry Follow up Oncology recs Monitor renal function. Monitor electrolytes. Supplement as necessary. Monitor ins and outs. Recommend diet and lifestyle modifications for weight reduction Obesity complicates all care DVT prophylaxis. Prognosis: Poor given patient's multiple co-morbidities. Rest of plan per hospitalist and other consultants. Thank you, Dr. Hyman, for allowing me to participate in this patient's care. Further recommendations will depend on the patient's clinical course. Please do not hesitate to contact me if you have any questions or concerns. This medical document was created using an electronic medical record system with [employer] system. Although these documentations are being carefully reviewed, there may still be some phonetic and typographical changes. The errors are purely typographical, due to imperfection on the software program, and do not reflect any compromise in the patient's medical care. Plan discussed with: Patient, Other (SHANTANU Joya) Visit Coding Pulmonary Billing Provider: GILES STEPHENS MD Date of Service if different f: Mar 07, 2025 Common Visit Codes: [id number] INP/OBS CARE(HIGH) GILES STEPHENS MD Mar 07, 2025 23:16
[2025-03-08] VITALS (8 sets, daily range): BP systolic 126–139; BP diastolic 70–87; PULSE 97–126; RESP 16–20; TEMP 97.9–98.3; O2SAT 98–100
[2025-03-08 07:26] LABS: Hemoglobin 12.4 g/dL (12.2-16.2); Nucleated Red Blood Cells % 0.1 %
[2025-03-08 07:30] LABS: Hematocrit 37.7 % (36.0-46.0); Mean Corpuscular Hemoglobin 26.8 pg (28.0-32.0); Mean Corpuscular Volume 81.2 fL (80.0-100.0)
[2025-03-08 07:45] LABS: Calcium 9.3 mg/dL (8.7-10.4); Potassium 3.6 mmol/L (3.5-5.1); Sodium 139 mmol/L (136-145)
[2025-03-08 07:46] LABS: Anion Gap 12 (5-15); Carbon Dioxide 29 mmol/L (20-31)
[2025-03-08 07:47] LABS: Chloride 98 mmol/L (98-107)
[2025-03-08 07:51] LABS: BUN/Creatinine Ratio 16.9 (10.0-20.0); Blood Urea Nitrogen 13 mg/dL (9-23); Glucose 97 mg/dL (74-106)
--- NOTE | 2025-03-08 12:07 | DVHDS2 ---
Discharge Summary Date of Admission Mar 05, 2025 at 21:21 Date of Discharge: Mar 08, 2025 Labs/Diagnostic Data: Laboratory Results Test 03/08/25 06:15 03/06/25 06:20 03/06/25 00:58 03/06/25 00:50 White Blood Count 4.7 10^3/uL (4.4-10.8) Red Blood Count 4.64 10^6/uL (4.0-5.20) Hemoglobin 12.4 g/dL (12.2-16.2) Hematocrit 37.7 % (36.0-46.0) Mean Corpuscular Volume 81.2 fL (80.0-100.0) Mean Corpuscular Hemoglobin 26.8 pg (28.0-32.0) Mean Corpuscular Hemoglobin Concent 33.0 g/dL (32.0-36.0) Red Cell Distribution Width 14.3 % (11.8-14.3) Platelet Count 312 10^3/uL (140-450) Mean Platelet Volume 7.3 fL (6.9-10.8) Neutrophils (%) (Auto) 51.0 % (37.0-80.0) Lymphocytes (%) (Auto) 34.0 % (10.0-50.0) Monocytes (%) (Auto) 11.7 % (0.0-12.0) Eosinophils (%) (Auto) 2.8 % (0.0-7.0) Basophils (%) (Auto) 0.5 % (0.0-2.0) Neutrophils # (Auto) 2.4 10 ^3/uL (1.6-8.6) Lymphocytes # (Auto) 1.6 10 ^3/uL (0.4-5.4) Monocytes # (Auto) 0.5 10 ^3/uL (0-1.3) Eosinophils # (Auto) 0.1 10 ^3/uL (0-0.8) Basophils # (Auto) 0 10 ^3/uL (0-0.2) Nucleated Red Blood Cells 0.1 % Sodium Level 139 mmol/L (136-145) Potassium Level 3.6 mmol/L (3.5-5.1) Chloride Level 98 mmol/L (98-107) Carbon Dioxide Level 29 mmol/L (20-31) Anion Gap 12 (5-15) Blood Urea Nitrogen 13 mg/dL (9-23) Creatinine 0.77 mg/dL (0.550-1.02) Glomerular Filtration Rate Calc 88 mL/min (>90) BUN/Creatinine Ratio 16.9 (10.0-20.0) Serum Glucose 97 mg/dL (74-106) Calcium Level 9.3 mg/dL (8.7-10.4) Total Bilirubin 0.7 mg/dL (0.2-1.0) Aspartate Amino Transferase (AST) 19 U/L (13-40) Alanine Aminotransferase (ALT) 10 U/L (7-40) Alkaline Phosphatase 85 U/L (46-116) Total Protein 7.3 g/dL (5.7-8.2) Albumin 4.4 g/dL (3.2-4.8) Lactate Dehydrogenase 327 U/L (120-246) Body Fluid Source Pleural fluid Body Fluid pH 8.0 Body Fluid WBC (Manual) 1197 CUMM (0-200) Body Fluid RBC (Manual) 164064 CUMM (0-2000) Body Fluid Mononuclear Cells 88 % Body Fluid Polymorphonuclear Cells 12 % (0-25) Test 03/05/25 20:30 03/05/25 18:11 03/05/25 15:00 Urine Color Colorless (Yellow) Urine Clarity Turbid (Clear) Urine pH 7.0 (5.0-9.0) Urine Specific [place] 1.005 (1.001-1.035) Urine Protein Negative (Negative) Urine Ketones Negative (Negative) Urine Blood Negative /uL (Negative) Urine Nitrite Negative (Negative) Urine Bilirubin Negative (Negative) Urine Urobilinogen Normal mg/dL (Negative) Urine Leukocyte Esterase Trace /uL (Negative) Urine RBC 2 /hpf (0 - 4) Urine Microscopic WBC 2 /HPF (0-5) Urine Squamous Epithelial Cells Few /hpf (<5) Urine Bacteria None seen /hpf (None Seen) Urine Glucose Normal mg/dL (Normal) Lactic Acid Level 1.2 mmol/L (0.4-2.0) Prothrombin Time 10.5 sec (9.3-11.8) Prothrombin Time INR 0.99 (0.9-1.15) Activated Partial Thromboplast Time 29.4 SEC (24.5-34.5) Troponin I High Sensitivity 4 ng/L (</=34) Other Laboratory Tests 12/23/25 06:15 Brief Hx & Hospital Course: see dictated note Condition at Discharge: Guarded Final Diagnosis/Problems List mets breast cancer Discharge Disposition: Home Discharge Instruct/Medications Diet: Regular Activity: No Restrictions, As Tolerated Follow Up/Referral: fu with oncology Medications: resume home meds Scheduled Ascorbic Acid (Vitamin C Tablet), Unknown Dose PO DAILY, (Reported) Scheduled PRN Acetaminophen W/ Codeine (Tylenol W/Cod #3), 1 TAB PO Q4HP PRN Miscellaneous Medications Menthol-Camphor (Liniments) (Menthol 10% + Camphor 4% 10-4 %), Unknown Dose EX, (Reported) Zinc Gluconate (Zinc), Unknown Dose PO, (Reported) Discharge Statement: "Patient was advised to return to the ER or call 911 if any headaches, dizziness, shortness of breath, chest pain, abdominal pain, bleeding, fevers, or worsening of medical condition. Patient was counseled about treatment plan, medications, possible side effects, patientverbalized understanding. All questions were answered to the best of my ability. This discharge took greater then 30 minutes in planning, reviewing documentation, counseling the patient, and discussing with other team members." ASSESSMENT ASSESSMENT Assessment mets breast cancer Date of Service: Mar 08, 2025 Billing Provider: MAAME VARGAS MD Common Visit Codes: [id number] DISCH DAY >30min MAAME VARGAS MD Mar 08, 2025 12:07
--- NOTE | 2025-03-08 12:24 | DVHDS ---
DATE OF DISCHARGE: 03/08/2025 HISTORY OF PRESENT ILLNESS: The patient is a 59-year-old lady who is admitted with a history of increasing shortness of breath after she underwent a recent excision of her axillary breast mass. She has a history of previous breast cancer with bilateral mastectomy. HOSPITAL COURSE: The patient underwent thoracentesis with removal of 1200 mL of fluid. The patient's right axillary mass biopsy returned as suggestive of cancer. The patient also had a CT of the chest, abdomen, and pelvis that showed metastatic disease through both lungs, as well as involving the left parietal pleura and a moderate-sized loculated left pleural effusion, along with right axillary adenopathy. I reviewed the CAT scan with the patient's . She will have an ABG on room air prior to discharge and will be discharged home to follow up with Oncology as soon as possible. FINAL DIAGNOSES: * Acute respiratory failure. * Metastatic breast cancer. * Left pleural effusion status post thoracentesis. * Obesity. * Status post mastectomy. Time spent in discharge planning and review of the plan with the patient, nursing, and family was 41 minutes. MD CLINT Haney/NILO TID: [id number] RECEIPT: [id number]
[2025-03-08 12:52] LABS: Base Excess 1.3 mmol/L (-2.0-3.0)
[2025-03-08 13:07] LABS: Glucose, Body Fluid 91.0 mg/dL (.); LD, Body Fluid 564.0 IU/L (.)
[2025-03-09] VITALS (8 sets, daily range): BP systolic 114–135; BP diastolic 74–84; PULSE 95–106; RESP 17–20; TEMP 97.5–98.5; O2SAT 95–100
--- NOTE | 2025-03-09 11:35 | DVHPN2 ---
Progress Note Date Seen: Mar 09, 2025 Medical Necessity Reason Pt with a Central, PICC or Fol: No Subjective Patient reports: No new complaints Review of Systems: HEENT:Normal, CVS:Normal, RESPIRATORY:Normal, GI:Normal, :Normal, MSK:Normal, NEURO:Normal Objective vital signs Vital Sign Date Time Temp Pulse Resp B/P (MAP) Pulse Ox O2 Delivery O2 Flow Rate FiO2 03/09/25 09:00 98.1 98 20 114/76 (89) 99 98.1 03/09/25 08:00 Nasal Cannula* 4 36 Total Intake and Output 03/08/25 03/08/25 03/09/25 15:00 23:00 07:00 Intake Total 580 ml 1100 ml Balance 580 ml 1100 ml medications Current Medications Medications Dose Ordered Sig/Lena Route Start Time Stop Time Status Last Admin Dose Admin Doxycycline Hyclate 100 ml @ 50 mls/hr Q12H IV 03/05/25 22:00 03/08/25 09:47 50 MLS/HR Enoxaparin Sodium 40 mg DAILY SC 03/06/25 17:30 03/09/25 10:03 40 MG Acetaminophen 650 mg Q6HP PRN PO 03/07/25 11:30 Acetaminophen/ Hydrocodone Bitart 1 tab Q6HPRN PRN PO 03/07/25 11:30 Morphine Sulfate 2 mg Q6HPRN PRN IV 03/07/25 11:45 Examination: GENERAL:Normal, HEENT:Normal, NECK:Normal, LUNGS:Normal, LUNGS:Abnormal (on oxygen), CVS:Normal, ABDOMEN:Normal, MSK:Normal, SKIN:Normal, NEURO:Normal, :Normal laboratory and microbiology Laboratory Tests 03/08/25 06:15 Test 03/08/25 06:15 Range/Units Serum Glucose 97 74-106 mg/dL Microbiology Date/Time Source Procedure Growth Status 03/07/25 15:00 Nose MRSA Screen - Final Complete 03/06/25 00:50 Thoracic Fluid Gram Stain - Final Resulted 03/06/25 00:50 Thoracic Fluid Aerobic Culture - Preliminary No growth Resulted 03/05/25 18:11 Blood Blood Culture - Preliminary NO GROWTH AFTER 72 HOURS OF INCUBATION. Resulted Problem List/Assessment/Plan Problem List/Assessment/Plan #1 acute resp failure: cont oxygen #2 h/o breast cancer s/p surg/chemo #3 right axillary mass s/p surgery #4 left effusion s/p thoracentesis: ct chest #5 obesity #6 ?pneumonia-gram positive/neg #7 mets breast cancer await oxygen arrangement advance care planning- full code- time spent 18 mins Plan discussed with: Patient My Orders My Orders Orders - MAAME VARGAS MD Procedure Category Date Status Time Abg W/ Co-Ox RT 03/08/25 Logged 12:02 Discharge DISCHARGE 03/08/25 Transmitted 12:06 * [employer] CONS 03/08/25 Transmitted Consult Date of Service: Mar 09, 2025 Billing Provider: MAAME VARGAS MD Common Visit Codes: [id number] INP/OBS CARE(HIGH) MAAME VARGAS MD Mar 09, 2025 11:35
[2025-03-09] MEDS: ACETAMINOPHEN 325 MG TAB PO PRN (15:23)
[2025-03-10] VITALS (8 sets, daily range): BP systolic 112–144; BP diastolic 66–83; PULSE 98–123; RESP 16–18; TEMP 97.7–98.8; O2SAT 97–100
--- NOTE | 2025-03-10 12:51 | DVHPN2 ---
Reviewed: H&P Changes from previous H/P or p: No Changes General: Per HPI Objective Vitals Vital Signs Date Time Temp Pulse Resp B/P (MAP) Pulse Ox O2 Delivery O2 Flow Rate FiO2 03/10/25 09:00 98.1 113 17 144/67 (92) 97 98.1 03/10/25 08:00 Nasal Cannula* 3 32 Intake/Output Intake and Output 03/10/25 07:00 Intake Total 2220 ml Output Total 800 ml Balance 1420 ml Intake Oral 2220 ml Output Urine Total 800 ml # Voids 8 Exam GENERAL:Normal, HEENT:Normal, NECK:Normal, LUNGS:Normal, LUNGS:Abnormal (on oxygen), CVS:Normal, ABDOMEN:Normal, MSK:Normal, SKIN:Normal, NEURO:Normal, :Normal Medications Current Medications Medications Dose Ordered Sig/Lena Route Start Time Stop Time Status Last Admin Dose Admin Doxycycline Hyclate 100 ml @ 50 mls/hr Q12H IV 03/05/25 22:00 03/10/25 09:10 50 MLS/HR Enoxaparin Sodium 40 mg DAILY SC 03/06/25 17:30 03/10/25 09:10 40 MG Acetaminophen 650 mg Q6HP PRN PO 03/07/25 11:30 03/09/25 15:23 650 MG Acetaminophen/ Hydrocodone Bitart 1 tab Q6HPRN PRN PO 03/07/25 11:30 Morphine Sulfate 2 mg Q6HPRN PRN IV 03/07/25 11:45 Laboratory Results Laboratory Tests 03/08/25 06:15 Urinalysis Test 03/05/25 20:30 Urine Color Colorless (Yellow) Urine Clarity Turbid (Clear) H Urine pH 7.0 (5.0-9.0) Urine Specific [place] 1.005 (1.001-1.035) Urine Protein Negative (Negative) Urine Ketones Negative (Negative) Urine Blood Negative /uL (Negative) Urine Nitrite Negative (Negative) Urine Bilirubin Negative (Negative) Urine Urobilinogen Normal mg/dL (Negative) Urine Leukocyte Esterase Trace /uL (Negative) Urine RBC 2 /hpf (0 - 4) Urine Microscopic WBC 2 /HPF (0-5) Urine Squamous Epithelial Cells Few /hpf (<5) Urine Bacteria None seen /hpf (None Seen) Urine Glucose Normal mg/dL (Normal) Microbiology Microbiology Date/Time Source Procedure Growth Status 03/07/25 15:00 Nose MRSA Screen - Final Complete 03/06/25 00:50 Thoracic Fluid Gram Stain - Final Resulted 03/06/25 00:50 Thoracic Fluid Aerobic Culture - Preliminary No growth Resulted 03/05/25 18:11 Blood Blood Culture - Preliminary NO GROWTH AFTER 72 HOURS OF INCUBATION. Resulted Labs and/or images reviewed: Labs reviewed by me, Image(s) reviewed by me Assessment/Plan Assessment/Plan 03/10: Patient remains stable for discharge as per plan from primary hospitalist 2 days ago. Waiting for oxygen. Patient will need a stat outpatient follow up with Oncology for newly diagnosed lung cancer. Continue primary team's discharge plan. - update: Oxygen for insurance we will not be able to deliver until Friday as to close for the . We will repeat ABG today. Patient wants to go home. #1 acute resp failure: cont oxygen #2 h/o breast cancer s/p surg/chemo #3 right axillary mass s/p surgery #4 left effusion s/p thoracentesis: ct chest #5 obesity #6 ?pneumonia-gram positive/neg #7 mets breast cancer await oxygen arrangement Tele Full code Plan discussed with: Patient Date of Service: Mar 10, 2025 Billing Provider: RAF VILLAVICENCIO MD Common Visit Codes: [id number] INP/OBS CARE(MOD) RAF VILLAVICENCIO MD Mar 10, 2025 12:51
--- NOTE | 2025-03-10 22:25 | DVHPN2 ---
Subjective DOS: 03/10/2025 Patient seen and examined at bedside. Remains on supplemental oxygen Overnight events reviewed. Reviewed: H&P Changes from previous H/P or p: No Changes General: Per HPI Objective Vitals Vital Signs Date Time Temp Pulse Resp B/P (MAP) Pulse Ox O2 Delivery O2 Flow Rate FiO2 03/10/25 16:53 98.5 108 16 139/72 (94) 99 98.5 03/10/25 08:00 Nasal Cannula* 3 32 Intake/Output Intake and Output 03/10/25 07:00 Intake Total 2220 ml Output Total 800 ml Balance 1420 ml Intake Oral 2220 ml Output Urine Total 800 ml # Voids 8 Exam Gen.: Patient lying in bed in no apparent distress. On supplemental oxygen. Head: Normocephalic, atraumatic. Eyes: EOMI/PERRLA. Ears: Normal hearing. Normal anatomy. Neck/trachea: Trachea midline, supple. Nose: Normal external anatomy. Mouth: Moist mucous membranes. Chest: Decreased air entry bilaterally. No wheezing or rhonchi. Cardiovascular: Positive S1, positive S2. Regular rate and rhythm. Abdomen: Positive bowel sounds in all 4 quadrants. Soft, non-tender, non- distended. : Deferred. Rectal: Deferred. Skin: Warm, dry. Intact. Extremities: 2+ radial pulses bilaterally. No lower extremity edema. Neuro: Awake, alert, oriented x3. No gross motor or sensory deficits. Cranial nerves II through XII intact. Gait not assessed. Medications Current Medications Medications Dose Ordered Sig/Lena Route Start Time Stop Time Status Last Admin Dose Admin Doxycycline Hyclate 100 ml @ 50 mls/hr Q12H IV 03/05/25 22:00 03/10/25 09:10 50 MLS/HR Enoxaparin Sodium 40 mg DAILY SC 03/06/25 17:30 03/10/25 09:10 40 MG Acetaminophen 650 mg Q6HP PRN PO 03/07/25 11:30 03/10/25 17:26 650 MG Acetaminophen/ Hydrocodone Bitart 1 tab Q6HPRN PRN PO 03/07/25 11:30 Morphine Sulfate 2 mg Q6HPRN PRN IV 03/07/25 11:45 Laboratory Results Laboratory Tests 03/08/25 06:15 Urinalysis Test 03/05/25 20:30 Urine Color Colorless (Yellow) Urine Clarity Turbid (Clear) H Urine pH 7.0 (5.0-9.0) Urine Specific [place] 1.005 (1.001-1.035) Urine Protein Negative (Negative) Urine Ketones Negative (Negative) Urine Blood Negative /uL (Negative) Urine Nitrite Negative (Negative) Urine Bilirubin Negative (Negative) Urine Urobilinogen Normal mg/dL (Negative) Urine Leukocyte Esterase Trace /uL (Negative) Urine RBC 2 /hpf (0 - 4) Urine Microscopic WBC 2 /HPF (0-5) Urine Squamous Epithelial Cells Few /hpf (<5) Urine Bacteria None seen /hpf (None Seen) Urine Glucose Normal mg/dL (Normal) Microbiology Microbiology Date/Time Source Procedure Growth Status 03/07/25 15:00 Nose MRSA Screen - Final Complete 03/06/25 00:50 Thoracic Fluid Gram Stain - Final Resulted 03/06/25 00:50 Thoracic Fluid Aerobic Culture - Preliminary No growth Resulted 03/05/25 18:11 Blood Blood Culture - Final NO GROWTH AFTER 5 DAYS OF INCUBATION. Complete Assessment/Plan Assessment/Plan Impression: Acute hypoxic respiratory failure Dependence on supplemental oxygen Lung cancer Pleural effusion, left Atelectasis Obesity Events: Remains on supplemental oxygen, 3 LPM NC Taper O2 as tolerated No acute overnight events. CXR demonstrates small left pleural effusion. Multifocal airspace disease. Continue antibiotics Incentive spirometry Follow up cytology. Diurese with Lasix as tolerated. Monitor renal function. Monitor electrolytes. Supplement as necessary. Maintain euvolemia Monitor ins and outs Follow up as outpatient for left thoracentesis - recurrent left pleural effusions due to lung cancer. Labs and imaging reviewed. Rest of plan as noted below. Plan: Supplemental oxygen Titrate to keep O2 sats above 92%. S/p left thoracentesis on 03/06, drained 1.5 liters of serosanguineous fluid Follow up fluid analysis, culture and cytology Patient had recent lung bx, diagnosed with lung cancer. Continue antibiotics Incentive spirometry Follow up Oncology recs Monitor renal function. Monitor electrolytes. Supplement as necessary. Monitor ins and outs. Recommend diet and lifestyle modifications for weight reduction Obesity complicates all care DVT prophylaxis. Prognosis: Poor given patient's multiple co-morbidities. Rest of plan per hospitalist and other consultants. Thank you, Dr. Hyman, for allowing me to participate in this patient's care. Further recommendations will depend on the patient's clinical course. Please do not hesitate to contact me if you have any questions or concerns. This medical document was created using an electronic medical record system with [employer] computerized dictation system. Although these documentations are being carefully reviewed, there may still be some phonetic and typographical changes. The errors are purely typographical, due to imperfection on the software program, and do not reflect any compromise in the patient's medical care. Plan discussed with: Other (RN) Visit Coding Pulmonary Billing Provider: GILES STEPHENS MD Date of Service if different f: Mar 10, 2025 Common Visit Codes: [id number] INP/OBS CARE(HIGH) GILES STEPHENS MD Mar 10, 2025 22:25
[2025-03-11 01:00] VITALS: BP 134/71; PULSE 97; RESP 19; TEMP 98.4; O2SAT 99
[2025-03-11 05:00] VITALS: BP 142/85; PULSE 105; RESP 19; TEMP 98.2; O2SAT 100
[2025-03-11 08:00] VITALS: PULSE 100; PULSE 110; O2SAT 93
[2025-03-11 09:00] VITALS: BP 132/77; PULSE 100; RESP 18; TEMP 98.1; O2SAT 98
--- NOTE | 2025-03-11 10:36 | DVHPN2 ---
Reviewed: H&P Changes from previous H/P or p: No Changes General: Per HPI Objective Vitals Vital Signs Date Time Temp Pulse Resp B/P (MAP) Pulse Ox O2 Delivery O2 Flow Rate FiO2 03/11/25 09:00 98.1 100 18 132/77 (95) 98 98.1 03/10/25 20:00 Nasal Cannula* 4 36 Intake/Output Intake and Output 03/11/25 07:00 Intake Total 2860 ml Balance 2860 ml Intake Oral 2760 ml IV Total 100 ml # Voids 25 Exam GENERAL:Normal, HEENT:Normal, NECK:Normal, LUNGS:Normal, LUNGS:Abnormal (on oxygen), CVS:Normal, ABDOMEN:Normal, MSK:Normal, SKIN:Normal, NEURO:Normal, :Normal Medications Current Medications Medications Dose Ordered Sig/Lena Route Start Time Stop Time Status Last Admin Dose Admin Doxycycline Hyclate 100 ml @ 50 mls/hr Q12H IV 03/05/25 22:00 03/10/25 22:23 50 MLS/HR Enoxaparin Sodium 40 mg DAILY SC 03/06/25 17:30 03/11/25 09:27 40 MG Acetaminophen 650 mg Q6HP PRN PO 03/07/25 11:30 03/10/25 17:26 650 MG Acetaminophen/ Hydrocodone Bitart 1 tab Q6HPRN PRN PO 03/07/25 11:30 Morphine Sulfate 2 mg Q6HPRN PRN IV 03/07/25 11:45 Laboratory Results Laboratory Tests 03/08/25 06:15 Urinalysis Test 03/05/25 20:30 Urine Color Colorless (Yellow) Urine Clarity Turbid (Clear) H Urine pH 7.0 (5.0-9.0) Urine Specific [place] 1.005 (1.001-1.035) Urine Protein Negative (Negative) Urine Ketones Negative (Negative) Urine Blood Negative /uL (Negative) Urine Nitrite Negative (Negative) Urine Bilirubin Negative (Negative) Urine Urobilinogen Normal mg/dL (Negative) Urine Leukocyte Esterase Trace /uL (Negative) Urine RBC 2 /hpf (0 - 4) Urine Microscopic WBC 2 /HPF (0-5) Urine Squamous Epithelial Cells Few /hpf (<5) Urine Bacteria None seen /hpf (None Seen) Urine Glucose Normal mg/dL (Normal) Microbiology Microbiology Date/Time Source Procedure Growth Status 03/07/25 15:00 Nose MRSA Screen - Final Complete 03/06/25 00:50 Thoracic Fluid Gram Stain - Final Complete 03/06/25 00:50 Thoracic Fluid Aerobic Culture - Final Complete 03/05/25 18:11 Blood Blood Culture - Final NO GROWTH AFTER 5 DAYS OF INCUBATION. Complete Labs and/or images reviewed: Labs reviewed by me, Image(s) reviewed by me Assessment/Plan Assessment/Plan 03/10: Patient remains stable for discharge as per plan from primary hospitalist 2 days ago. Waiting for oxygen. Patient will need a stat outpatient follow up with Oncology for newly diagnosed lung cancer. Continue primary team's discharge plan. - update: Oxygen for insurance we will not be able to deliver until Friday as to close for the . We will repeat ABG today. Patient wants to go home. 03/11: RT evaluated for oxygen yesterday, SpO2 was 93% on room air. Later on patient dropped down to high 80s and oxygen was put him back on. We will reassess today, we will get ambulatory BG if needed. Patient had bowel movement this morning. Family is reassured that patient does not need inpatient transfer and we will have to get stat follow up referral with oncology. Social work has notified me that the insurance company will not be delivering oxygen until Friday, we will follow up with social. Patient have escalated biopsy with surgery, she needs to follow up 1 week with surgery. -check with oxygen, patient is saturating 90-93% even with ambulation. Okay to discharge, continue primary hospitalist plan for outpatient discharge plan #1 acute resp failure: cont oxygen #2 h/o breast cancer s/p surg/chemo #3 right axillary mass s/p surgery #4 left effusion s/p thoracentesis: ct chest #5 obesity #6 ?pneumonia-gram positive/neg #7 mets breast cancer await oxygen arrangement Tele Full code Plan discussed with: Patient Date of Service: Mar 11, 2025 Billing Provider: RAF VILLAVICENCIO MD Common Visit Codes: [id number] INP/OBS CARE(HIGH) RAF VILLAVICENCIO MD Mar 11, 2025 10:36
[2025-03-11] MEDS ORDERED: ALBU108A5 IN (12:45)
[2025-03-11 13:00] VITALS: BP 138/80; PULSE 103; RESP 18; TEMP 98.4; O2SAT 91
[2025-03-11] MEDS: BACLOFEN 10 MG TAB PO ONE (13:14)
[2025-03-11 14:09] VITALS: BP 126/75; TEMP 36.9
--- NOTE | 2025-03-11 23:50 | DVHPN2 ---
Subjective DOS: 03/11/2025 Patient seen and examined at bedside. Remains on supplemental oxygen Overnight events reviewed. Reviewed: H&P Changes from previous H/P or p: No Changes General: Per HPI Objective Vitals Vital Signs Date Time Temp Pulse Resp B/P (MAP) Pulse Ox O2 Delivery O2 Flow Rate FiO2 03/11/25 14:09 36.9 03/11/25 13:00 103 18 138/80 (99) 91 03/11/25 08:00 Room Air* 0 21 Intake/Output Intake and Output 03/11/25 07:00 Intake Total 2860 ml Balance 2860 ml Intake Oral 2760 ml IV Total 100 ml # Voids 25 Exam Gen.: Patient lying in bed in no apparent distress. On supplemental oxygen. Head: Normocephalic, atraumatic. Eyes: EOMI/PERRLA. Ears: Normal hearing. Normal anatomy. Neck/trachea: Trachea midline, supple. Nose: Normal external anatomy. Mouth: Moist mucous membranes. Chest: Decreased air entry bilaterally. No wheezing or rhonchi. Cardiovascular: Positive S1, positive S2. Regular rate and rhythm. Abdomen: Positive bowel sounds in all 4 quadrants. Soft, non-tender, non- distended. : Deferred. Rectal: Deferred. Skin: Warm, dry. Intact. Extremities: 2+ radial pulses bilaterally. No lower extremity edema. Neuro: Awake, alert, oriented x3. No gross motor or sensory deficits. Cranial nerves II through XII intact. Gait not assessed. Laboratory Results Laboratory Tests 03/08/25 06:15 Urinalysis Test 03/05/25 20:30 Urine Color Colorless (Yellow) Urine Clarity Turbid (Clear) H Urine pH 7.0 (5.0-9.0) Urine Specific [place] 1.005 (1.001-1.035) Urine Protein Negative (Negative) Urine Ketones Negative (Negative) Urine Blood Negative /uL (Negative) Urine Nitrite Negative (Negative) Urine Bilirubin Negative (Negative) Urine Urobilinogen Normal mg/dL (Negative) Urine Leukocyte Esterase Trace /uL (Negative) Urine RBC 2 /hpf (0 - 4) Urine Microscopic WBC 2 /HPF (0-5) Urine Squamous Epithelial Cells Few /hpf (<5) Urine Bacteria None seen /hpf (None Seen) Urine Glucose Normal mg/dL (Normal) Microbiology Microbiology Date/Time Source Procedure Growth Status 03/07/25 15:00 Nose MRSA Screen - Final Complete 03/06/25 00:50 Thoracic Fluid Gram Stain - Final Complete 03/06/25 00:50 Thoracic Fluid Aerobic Culture - Final Complete 03/05/25 18:11 Blood Blood Culture - Final NO GROWTH AFTER 5 DAYS OF INCUBATION. Complete Assessment/Plan Assessment/Plan Impression: Acute hypoxic respiratory failure Dependence on supplemental oxygen Lung cancer Pleural effusion, left Atelectasis Obesity Events: Remains on supplemental oxygen, 3 LPM NC Taper O2 as tolerated SpO2 was assessed at 93% on room air. Awaiting home O2 arrangements. Social work recs appreciated. Patient had bowel movement this morning. We will refer patient to Oncology. Continue antibiotics Incentive spirometry Follow up cytology. Diurese with Lasix as tolerated. Monitor renal function. Monitor electrolytes. Supplement as necessary. Maintain euvolemia Monitor ins and outs Follow up as outpatient for left thoracentesis - recurrent left pleural effusions due to lung cancer. Patient is stable for discharge from the pulmonary standpoint. Disposition per hospitalist. Follow up in 1-2 weeks in Pulmonary Clinic to evaluate for recurrent malignant effusion. Labs and imaging reviewed. Rest of plan as noted below. Plan: Supplemental oxygen Titrate to keep O2 sats above 92%. S/p left thoracentesis on 03/06, drained 1.5 liters of serosanguineous fluid Follow up fluid analysis, culture and cytology Patient had recent lung bx, diagnosed with lung cancer. Continue antibiotics Incentive spirometry Follow up Oncology recs Monitor renal function. Monitor electrolytes. Supplement as necessary. Monitor ins and outs. Recommend diet and lifestyle modifications for weight reduction Obesity complicates all care DVT prophylaxis. Prognosis: Poor given patient's multiple co-morbidities. Rest of plan per hospitalist and other consultants. Thank you, Dr. Hyman, for allowing me to participate in this patient's care. Further recommendations will depend on the patient's clinical course. Please do not hesitate to contact me if you have any questions or concerns. This medical document was created using an electronic medical record system with [employer] system. Although these documentations are being carefully reviewed, there may still be some phonetic and typographical changes. The errors are purely typographical, due to imperfection on the software program, and do not reflect any compromise in the patient's medical care. Plan discussed with: Patient, Other (SHANTANU Zapata) Visit Coding Pulmonary Billing Provider: GILES STEPHENS MD Date of Service if different f: Mar 11, 2025 Common Visit Codes: [id number] INP/OBS CARE(HIGH) GILES STEPHENS MD Mar 11, 2025 23:50
== END 2025-03-11 17:30 | disposition home or self-care (01) | DRG 180 ==
LOC: ER 13:25 → OVERFLOW 21:21 → TELE-WESTW 22:52
PROVIDERS: ADMIT Nurse Practitioner Acute Care; ATTEND Nurse Practitioner Acute Care
PROC: 0W9B3ZZ Drainage of Left Pleural Cavity, Percutaneous Approach (ICD-10-PCS; principal; 2025-03-06)
DX: C34.92 Malignant neoplasm of unspecified part of left bronchus or lung (principal); J96.01 Acute respiratory failure with hypoxia; Z99.81 Dependence on supplemental oxygen; J91.8 Pleural effusion in other conditions classified elsewhere; Z68.30 Body mass index [BMI] 30.0-30.9, adult; J98.11 Atelectasis; E66.9 Obesity, unspecified; Z88.0 Allergy status to penicillin; Z90.13 Acquired absence of bilateral breasts and nipples; Z92.21 Personal history of antineoplastic chemotherapy; Z85.118 Personal history of other malignant neoplasm of bronchus and lung; Z85.3 Personal history of malignant neoplasm of breast
CPT/HCPCS: 32555; 36415; 36600; 71045; 71260; 74177; 80048; 80053; 81001; 82805; 83605; 83615; 83986; 84484; 85025; 85610; 85730; 87040; 87070; 87081; 87205; 89051; 93005; 96361; 96365; 99291; G0378

== ENCOUNTER 2025-03-14 13:11 | Emergency (ER) | payer OTHER ==
[~2025-03-14] VITALS: Ht 154.9 cm; Wt 72.8 kg
[~2025-03-14 13:11] MED LIST changes: +ALBU108A5 IN
--- NOTE | 2025-03-14 14:15 | ED.PDOC ---
History of Present Illness(SKN HPI Comments The patient with a history of cancer is presenting for evaluation of a RAYMUNDO drain placed 11 days before this visit. Has no other complaints. Chief Complaint: Tube Replacement Time Seen by MD: 14:00 History of Present Illness: Nurses Notes, Medications, Allergies Allergies: Coded Allergies: Penicillins (Unverified Allergy, Mild, rash, 03/01/25) Home Meds Active Scripts Albuterol Sulfate (Albuterol Sulfate Hfa) 108 Mcg/Act Aer, 108 MCG IN TIDP PRN, #1 AER 0 Refills Prov:RAF VILLAVICENCIO MD 03/11/25 Acetaminophen W/ Codeine (Tylenol W/Cod #3) 1 Tab Tb, 1 TAB PO Q4HP PRN for 10 Days, #50 TAB Prov:FABIOLA RIVERA NP 03/02/25 Reported Medications Menthol-Camphor (Liniments) (Menthol 10% + Camphor 4% 10-4 %) 1 Cre Cre, EX, CRE 03/01/25 Zinc Gluconate (ZINC) 100 Mg Tab, PO, TAB 03/01/25 Ascorbic Acid (VITAMIN C TABLET) 500 Mg Tb, PO DAILY, #30 TAB 3 Refills 03/01/25 Information Source: Patient Mode of Arrival: Ambulatory Severity: Moderate Timing: Days Duration: Since onset, Days Prehospital treatment: None Location: Chest Mechanism: Preceding Wound Object: None Condition of Object: None Wound Type: Other (RAYMUNDO drainage) Tetanus: Unknown Associated Signs and Symptoms: None Past Medical History PAST MEDICAL HISTORY: Denies Surgical History: Denies all surgeries Surgical History (Other): Right breast surgery MANAGER CALL History: No Pertinent MANAGER CALL History Family History Family History: Reviewed,noncontributory to illness, Unknown Social History Smoker: Non-Smoker Alcohol: Denies ETOH Use Drugs: Denies Drug Use Lives In: Home Constitutional: denies: chills, diaphoresis, fatigue, fever, malaise, sweats, weakness, others EENTM: denies: blurred vision, double vision, ear bleeding, ear discharge, ear drainage, ear pain, ear ringing, eye pain, eye redness, hearing loss, mouth pain, mouth swelling, nasal discharge, nose bleeding, nose congestion, nose pain, photophobia, tearing, throat pain, throat swelling, voice changes, others Respiratory: denies: cough, hemoptysis, orthopnea, SOB at rest, shortness of breath, SOB with excertion, stridor, wheezing, others Cardiovascular: denies: chest pain, dizzy spells, diaphoresis, Dyspnea on exertion, edema, irregular heart beat, left arm pain, lightheadedness, palpitations, PND, syncope, others Gastrointestinal: denies: abdomen distended, abdominal pain, blood streaked bowels, constipated, diarrhea, dysphagia, difficulty swallowing, hematemesis, melena, nausea, poor appetite, poor fluid intake, rectal bleeding, rectal pain, vomiting, others Genitourinary: denies: abnormal vagina bleeding, burning, dyspareunia, dysuria, flank pain, frequency, hematuria, incontinence, pain, , vagina discharge, urgency, others Neurological: denies: dizziness, fainting, headache, left sided numbness, left sided weakness, numbness, paresthesia, pre-existing deficit, right sided numbness, right sided weakness, seizure, speech problems, tingling, tremors, weakness, others Musculoskeletal: denies: back pain, gout, joint pain, joint swelling, muscle pain, muscle stiffness, neck pain, others Integumetry: reports: wounds (wound check to the right breast S/P Sx); denies: bruises, change in color, change in hair/nails, dryness, laceration, lesions, lumps, rash, others Allergic/Immunocompromised: denies: Difficulty Healing, Frequent Infections, Hives, Itching, others Hematologic/Lymphatic: denies: anemia, blood clots, easy bleeding, easy bruising, swollen glands, others Endocrine: denies: excessive hunger, excessive sweating, excessive thirst, excessive urination, flushing, intolerance to cold, intolerance to heat, unexplained weight gain, unexplained weight loss, others Psychiatric: denies: anxiety, bipolar disorder, depression, hopeless, panic disorder, schizophrenia, sleepless, suicidal, others All Other Systems: Reviewed and Negative Physical Exam Exam Comments RAYMUNDO drain site appears good with minimal blood output. Dressing noted to need replacement. no erythema to the area, no discharge General Appearance: No Apparent Distress, Normal HEENT: Normal ENT Inspection, Pharynx Normal, TMs Normal Neck: Full Range of Motion, Non-Tender, Normal, Normal Inspection Respiratory: Chest Non-Tender, Lungs Clear, No Accessory Muscle Use, No Respiratory Distress, Normal Breath Sounds Cardiovascular: No Edema, No JVD, No Murmur, No Gallop, Normal Peripheral Pulses, Regular Rate/Rhythm Breast Exam: Deferred Gastrointestinal: No Organomegaly, Non Tender, No Pulsatile Mass, Normal Bowel Sounds, Soft Genitalia: Deferred Pelvic: Deferred Rectal: Deferred Extremities: No calf tenderness, Normal capillary refill, Normal inspection, Normal range of motion, Non-tender, No pedal edema Musculoskeletal : Apperance: Normal Neurologic: Alert, dimension 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 Was a procedure done?: No Differential Diagnosis (INTG) Differential Diagnosis: Other X-Ray, Labs, Meds, VS Vital Signs Date Time Temp Pulse Resp B/P (MAP) Pulse Ox O2 Delivery O2 Flow Rate FiO2 03/14/25 14:39 98.2 68 16 146/78 (100) 97 98.2 03/14/25 14:39 78 16 96 Room Air 03/14/25 13:17 97.6 84 15 132/71 99 97.6 X-Ray, Labs, Meds, VS Comment Patient arrives alert and oriented, ABC's intact, afebrile, vital signs stable, saturating well in room air The RAYMUNDO drain site appears healthy with minimal blood noted in the drain and no evidence of complications. The dressing requires renewal. -Redress the RAYMUNDO drain site The patient will wait for a new dressing to be placed. Further follow-up as needed for concerns regarding the drain site. Additional MDM Review of External, Non-ED records: External records reviewed. Discussion with independent historian (EMS, family) history obtained from the patient/parents (if applicable) at bedside Chronic conditions affecting care: None Social determinants of health affecting care: None Consideration of admission (observation or admission): I considered escalation of care to admission for this patient, however given the reassuring workup, the patient is safe for outpatient management. Discussion with the Radiology: No Tests considered but not performed: Prescription medication considered but not given: 12 lead EKG interpretation: Time of 1ST Reevaluation: 14:30 Reevaluation 1ST: Unchanged Patient Education/Counseling: Diagnosis, Treatment, Prognosis Family Education/Counseling: No Family Present SEPSIS Sepsis Screen Date sepsis recognized/suspect: Mar 14, 2025 Time Sepsis recognized/suspect: 1317 Recent Procedure: No On Antibiotic Therapy: No Respiratory Rate >20: No Heart Rate >90: No Temp<36 C (96.8 F) or >38.3 C: No SBP <90 or MAP <65 mmHG: No New Acute Mental Status Change: No Is the patient on CPAP, BIPAP,: No Vital Signs Date Time Temp Pulse Resp B/P (MAP) Pulse Ox O2 Delivery O2 Flow Rate FiO2 03/14/25 14:39 98.2 68 16 146/78 (100) 97 98.2 03/14/25 14:39 78 16 96 Room Air 03/14/25 13:17 97.6 84 15 132/71 99 97.6 Departure 1 Departure Time of Disposition: 14:31 Impression: Primary Impression: Visit for wound check Disposition: 01 HOME / SELF CARE / HOMELESS Condition: Stable Discharged With: Self Critical Care Note Critical Care Time?: No Stability Stability form required: No Heart Score Heart Score: Heart Score Response (Comments) Value History N/A 0 EKG N/A 0 Age N/A 0 Risk Factors N/A 0 Troponin N/A 0 Total 0 I personally scribed for KINGS NAVA NP (FEROMA) on 03/14/25 at 14:15. Electronically submitted by Barrington Hernandez ([employer]). I personally scribed for KINGS NAVA NP (DVALISEOMA) on 03/14/25 at 14:21. Electronically submitted by Barrington Hernandez ([employer]). KINGS NAVA NP Mar 14, 2025 14:15
[2025-03-14 14:39] VITALS: BP 146/78; PULSE 78; RESP 16; TEMP 98.2; O2SAT 96
== END 2025-03-14 14:43 | disposition home or self-care (01) ==
LOC: ER 13:11
DX: Z48.00 Encounter for change or removal of nonsurgical wound dressing (principal); Z88.0 Allergy status to penicillin; Z79.899 Other long term (current) drug therapy